=== PATIENT | female | born 1935 | race Caucasian/White ===

== ENCOUNTER → 2017-02-05 | Outpatient (CLI) | payer MEDICARE, MEDICAID ==
[~2017-02-05] MED LIST: ACETAMINOPHEN-H1 TA2 PO; ADVAIR 250/501 EA INH; ALLEGRA60 M2 PO; AMLODIPINE BESYL5 MG PO; CALCIUM + VITA1 EAC2 PO; CALCIUM 600 MG1 EACH PO; CALCIUM 600600 M2 PO; ESZOPICLONE3 MG PO; KEFLEX500 MG PO; LEVAQUIN750 M1 PO; LEVOTHYROXINE0.1 MG PO; LOPRESSOR25 MG PO; LOSARTAN POTASS1 TA5 PO; LOSARTAN POTASS1 TA6 PO; LOSARTAN POTASS50 M1 PO; MEDROL DOSEPAK4 MG PO; PREDNICOT20 MG PO; PREMARIN0.625 M1 PO; SPIRIVA -- 3018 MCG INH; SPIRIVA18 MCG PO; XARE20MG PO; ZYRTEC10 M3 PO
[2017-02-05 11:07] LABS: BASO # 0.1 10*3/uL (0.0-0.1); BASO % 0.7 % (0.0-1.0); EOS % 0.5 % (1.0-4.0); HEMATOCRIT 37.6 % (37.0-47.0); HEMOGLOBIN 12.2 g/dl (12.0-16.0); LYMPH # 2.9 10*3/uL (1.3-4.4); LYMPH % 38.6 % (27.0-41.0); MEAN CELL VOLUME 85.3 fl (81.0-99.0); MEAN CORPUSCULAR HGB 27.7 pg (27.0-31.0); MEAN CORPUSCULAR HGB CONC 32.4 g/dl (33.0-37.0); MEAN PLATELET VOLUME 10.3 fl (9.6-12.3); MONO % 13.1 % (3.0-9.0); NEUT # 3.5 10*3/uL (2.3-7.9); NEUT % 46.8 % (47.0-73.0); PLATELET COUNT AUTOMATED 283 10*3/uL (130-400); RED BLOOD COUNT 4.41 10*6/uL (4.10-5.10); RED CELL DISTRI WIDTH 13.1 % (0-14.5); WHITE BLOOD COUNT 7.4 10*3/uL (4.8-10.8)
[2017-02-05 11:29] LABS: ALBUMIN 3.4 gm/dl (3.1-4.5); ALKALINE PHOSPHATASE 96 U/L (45-117); BILIRUBIN, TOTAL 0.3 mg/dl (0.2-1.0); BUN 19 mg/dl (7-24); CARBON DIOXIDE 28 mmol/L (21-32); CHLORIDE 98 mmol/L (98-107); CHOLESTEROL 199 mg/dL (<200); EST GLOM FILT AFRICAN AMERICAN > 60 ml/min; GLUCOSE 78 mg/dL (65-99); HDL CHOLESTEROL 57 mg/dl (40-60); LDL CHOLESTEROL 103 mg/dL (9-159); POTASSIUM 3.6 mmol/L (3.5-5.1); SGOT/AST 28 IU/L (3-35); SGPT/ALT 31 U/L (12-78); SODIUM 136 mmol/L (136-145); TOTAL PROTEIN 7.6 gm/dL (6.4-8.2); TRIGLYCERIDES 196 mg/dl (<150); VLDL CHOLESTEROL 39 mg/dL (6-40)
== END | disposition home or self-care (01) ==
LOC: LAB 10:39
PROVIDERS: Nurse Practitioner
DX: I10 Essential (primary) hypertension (principal)

== ENCOUNTER 2017-03-10 09:01 | Inpatient (IN) | payer MEDICARE, MEDICAID ==
[~2017-03-10] VITALS: Ht 170.1 cm; Wt 77.7 kg
[2017-03-10] MEDS ORDERED: LEVOTHYROXINE0.1 MG PO (09:14)
[2017-03-10] MEDS ORDERED: VITAMIN D400 I1 PO (09:14)
[2017-03-10 09:15] VITALS: BP 174/81
[2017-03-10 09:26] LABS: BASO % 0.5 % (0.0-1.0); EOS # 0.1 10*3/uL (0.0-0.4); EOS % 0.9 % (1.0-4.0); HEMOGLOBIN 12.7 g/dl (12.0-16.0); LYMPH # 2.8 10*3/uL (1.3-4.4); MEAN CELL VOLUME 82.4 fl (81.0-99.0); MEAN CORPUSCULAR HGB 27.5 pg (27.0-31.0); MEAN CORPUSCULAR HGB CONC 33.4 g/dl (33.0-37.0); MEAN PLATELET VOLUME 10.7 fl (9.6-12.3); MONO % 13.2 % (3.0-9.0); NEUT # 3.8 10*3/uL (2.3-7.9); NEUT % 49.3 % (47.0-73.0); PLATELET COUNT AUTOMATED 279 10*3/uL (130-400); RED BLOOD COUNT 4.61 10*6/uL (4.10-5.10); RED CELL DISTRI WIDTH 12.8 % (0-14.5); WHITE BLOOD COUNT 7.7 10*3/uL (4.8-10.8)
[2017-03-10 09:34] LABS: INTERNATIONAL NORM RATIO 1.1 (2.0-3.5); PROTHROMBIN TIME 11.9 SECONDS (9.0-12.4)
[2017-03-10 09:38] LABS: C-REACTIVE PROTEIN 0.44 MG/DL (0-0.3)
[2017-03-10 11:08] LABS: ALBUMIN 3.8 gm/dl (3.1-4.5); ALKALINE PHOSPHATASE 87 U/L (45-117); BILIRUBIN, TOTAL 0.4 mg/dl (0.2-1.0); BUN 17 mg/dl (7-24); CARBON DIOXIDE 24 mmol/L (21-32); CHLORIDE 99 mmol/L (98-107); EST GLOM FILT AFRICAN AMERICAN > 60 ml/min; GLUCOSE 120 mg/dL (65-99); MAGNESIUM 1.6 mg/dL (1.5-2.1); POTASSIUM 3.9 mmol/L (3.5-5.1); SGOT/AST 32 IU/L (3-35); SGPT/ALT 34 U/L (12-78); SODIUM 134 mmol/L (136-145); TOTAL PROTEIN 7.7 gm/dL (6.4-8.2)
[2017-03-10 11:09] LABS: TROPONIN I < 0.015 ng/ml (<0.045)
[2017-03-10 11:45] VITALS: BP 148/92
[2017-03-10] MEDS ORDERED: METOPROLOL SUCC25 M2 PO (11:46)
[2017-03-10 12:00] VITALS: BP 148/92
[2017-03-10 16:00] VITALS: BP 157/72
[2017-03-10 20:00] VITALS: BP 158/78
[2017-03-11] VITALS: BP 120/82
[2017-03-11 07:29] LABS: BASO % 0.1 % (0.0-1.0); HEMATOCRIT 36.3 % (37.0-47.0); HEMOGLOBIN 12.4 g/dl (12.0-16.0); IG # 0.1 10*3/uL (0.0-0.1); LYMPH % 15.7 % (27.0-41.0); MEAN CELL VOLUME 82.3 fl (81.0-99.0); MEAN CORPUSCULAR HGB 28.1 pg (27.0-31.0); MEAN CORPUSCULAR HGB CONC 34.2 g/dl (33.0-37.0); MEAN PLATELET VOLUME 10.7 fl (9.6-12.3); MONO # 0.7 10*3/uL (0.1-1.0); MONO % 5.5 % (3.0-9.0); NEUT # 10.2 10*3/uL (2.3-7.9); NEUT % 78.3 % (47.0-73.0); PLATELET COUNT AUTOMATED 289 10*3/uL (130-400); RED BLOOD COUNT 4.41 10*6/uL (4.10-5.10); RED CELL DISTRI WIDTH 12.5 % (0-14.5)
[2017-03-11 07:40] LABS: BUN 18 mg/dl (7-24); CARBON DIOXIDE 25 mmol/L (21-32); CHLORIDE 91 mmol/L (98-107); EST GLOM FILT AFRICAN AMERICAN > 60 ml/min; GLUCOSE 134 mg/dL (65-99); MAGNESIUM 1.4 mg/dL (1.5-2.1); POTASSIUM 3.5 mmol/L (3.5-5.1); SODIUM 126 mmol/L (136-145)
[2017-03-11 07:45] LABS: FREE T4 1.59 ng/dl (0.76-1.46); PHOSPHOROUS 2.6 mg/dL (2.5-4.9)
[2017-03-11 07:51] LABS: THYROID STIM HORMONE (HS) 0.221 uIU/ml (0.358-4.75)
[2017-03-11 08:00] VITALS: BP 144/67
[2017-03-11 08:01] LABS: INTERNATIONAL NORM RATIO 1.2 (2.0-3.5); PROTHROMBIN TIME 12.7 SECONDS (9.0-12.4)
[2017-03-11 08:21] LABS: VITAMIN D, 25-HYDROXY 39.9 ng/mL (30-100)
[2017-03-11 08:31] LABS: FOLIC ACID > 24.00 ng/mL (>5.38)
[2017-03-11 12:00] VITALS: BP 142/55
[2017-03-11 16:00] VITALS: BP 141/51
[2017-03-11 18:30] LABS: BILIRUBIN NEGATIVE (NEGATIVE); BLOOD TRACE-INTACT (NEGATIVE); CLARITY CLEAR (CLEAR); COLOR YELLOW (YELLOW); GLUCOSE NEGATIVE (NEGATIVE); KETONE NEGATIVE (NEGATIVE); LEUKO ESTERASE NEGATIVE (NEGATIVE); NITRITE NEGATIVE (NEGATIVE); PH 5.5 (5.0-9.0); PROTEIN 1+ (NEGATIVE); SPECIFIC GRAVITY <= 1.005 (1.005-1.030); UROBILINOGEN 0.2 E.U./dl (0.2-1.0)
[2017-03-11 18:44] LABS: BACTERIA 3+; RBC 0-2 rbc/hpf (0-2)
[2017-03-11 20:00] VITALS: BP 126/45
[2017-03-12] VITALS: BP 133/53
[2017-03-12 06:12] LABS: BASO % 0.3 % (0.0-1.0); EOS # 0.1 10*3/uL (0.0-0.4); EOS % 0.4 % (1.0-4.0); HEMATOCRIT 39.2 % (37.0-47.0); HEMOGLOBIN 13.1 g/dl (12.0-16.0); LYMPH # 3.5 10*3/uL (1.3-4.4); MEAN CELL VOLUME 82.4 fl (81.0-99.0); MEAN CORPUSCULAR HGB 27.5 pg (27.0-31.0); MEAN CORPUSCULAR HGB CONC 33.4 g/dl (33.0-37.0); MEAN PLATELET VOLUME 10.9 fl (9.6-12.3); MONO # 1.3 10*3/uL (0.1-1.0); NEUT # 6.5 10*3/uL (2.3-7.9); PLATELET COUNT AUTOMATED 288 10*3/uL (130-400); RED BLOOD COUNT 4.76 10*6/uL (4.10-5.10); RED CELL DISTRI WIDTH 12.9 % (0-14.5); WHITE BLOOD COUNT 11.4 10*3/uL (4.8-10.8)
[2017-03-12 06:39] LABS: POTASSIUM 3.5 mmol/L (3.5-5.1)
[2017-03-12 08:00] VITALS: BP 120/70
[2017-03-12] MEDS ORDERED: LEVAQUIN750 M1 PO (09:57)
[2017-03-12] MEDS ORDERED: MUCINEX ER600 MG PO (10:10)
[2017-03-12] MEDS ORDERED: AMLODIPINE BESYL5 MG PO (10:17)
[2017-03-13 14:08] LABS: ORGANISM ID Not indicated. (.); SPECIMEN SOURCE Urine (.); STREPTOCOCCUS PNEUMONIAE AG Negative (Negative)
== END 2017-03-12 12:42 | disposition home or self-care (01) | DRG 190 ==
LOC: ED 09:01 → EDHOLD 11:20 → 4E 11:30
PROVIDERS: Emergency Medicine; Internal Medicine
DX: J44.0 Chronic obstructive pulmonary disease with (acute) lower respiratory infection (principal); J15.6 Pneumonia due to other Gram-negative bacteria; E87.1 Hypo-osmolality and hyponatremia; I48.0 Paroxysmal atrial fibrillation; J44.1 Chronic obstructive pulmonary disease with (acute) exacerbation; R07.81 Pleurodynia; Z88.6 Allergy status to analgesic agent; I10 Essential (primary) hypertension; Z98.42 Cataract extraction status, left eye; Z98.41 Cataract extraction status, right eye; Z87.891 Personal history of nicotine dependence; R73.9 Hyperglycemia, unspecified; E03.9 Hypothyroidism, unspecified; Z66 Do not resuscitate; Z90.710 Acquired absence of both cervix and uterus

== ENCOUNTER 2017-06-09 19:14 | Emergency (ER) | payer MEDICARE, MEDICAID ==
[~2017-06-09] VITALS: Ht 170.1 cm; Wt 74.8 kg
[~2017-06-09 19:14] MED LIST changes: +METOPROLOL SUCC25 M2 PO; +MUCINEX ER600 MG PO; +VITAMIN D400 I1 PO
== END 2017-06-09 21:12 | disposition home or self-care (01) ==
LOC: ED 19:14
DX: S00.03XA Contusion of scalp, initial encounter (principal); I10 Essential (primary) hypertension; I48.0 Paroxysmal atrial fibrillation; J44.9 Chronic obstructive pulmonary disease, unspecified; E03.9 Hypothyroidism, unspecified; Z88.6 Allergy status to analgesic agent; Z79.899 Other long term (current) drug therapy; W10.9XXA Fall (on) (from) unspecified stairs and steps, initial encounter; Y93.89 Activity, other specified; Y92.89 Other specified places as the place of occurrence of the external cause; Y99.8 Other external cause status

== ENCOUNTER 2017-08-05 11:58 | Emergency (ER) | payer MEDICARE, MEDICAID ==
[~2017-08-05] VITALS: Ht 170.1 cm; Wt 70.8 kg
[2017-08-05 12:47] LABS: BASO # 0.1 10*3/uL (0.0-0.1); BASO % 0.7 % (0.0-1.0); EOS # 0.1 10*3/uL (0.0-0.4); EOS % 0.9 % (1.0-4.0); HEMATOCRIT 42.4 % (37.0-47.0); LYMPH # 3.3 10*3/uL (1.3-4.4); LYMPH % 36.5 % (27.0-41.0); MEAN CELL VOLUME 82.5 fl (81.0-99.0); MEAN CORPUSCULAR HGB 27.2 pg (27.0-31.0); MEAN PLATELET VOLUME 10.5 fl (9.6-12.3); MONO # 1.1 10*3/uL (0.1-1.0); MONO % 12.6 % (3.0-9.0); NEUT # 4.4 10*3/uL (2.3-7.9); NEUT % 49.1 % (47.0-73.0); PLATELET COUNT AUTOMATED 275 10*3/uL (130-400); RED BLOOD COUNT 5.14 10*6/uL (4.10-5.10); RED CELL DISTRI WIDTH 13.6 % (0-14.5); WHITE BLOOD COUNT 8.9 10*3/uL (4.8-10.8)
[2017-08-05 12:54] LABS: BILIRUBIN NEGATIVE (NEGATIVE); BLOOD TRACE-INTACT (NEGATIVE); CLARITY SL CLOUDY (CLEAR); COLOR YELLOW (YELLOW); GLUCOSE NEGATIVE (NEGATIVE); KETONE NEGATIVE (NEGATIVE); LEUKO ESTERASE 3+ (NEGATIVE); NITRITE NEGATIVE (NEGATIVE); SPECIFIC GRAVITY 1.015 (1.005-1.030); UROBILINOGEN 0.2 E.U./dl (0.2-1.0)
[2017-08-05 12:59] LABS: ACT PARTIAL THROMBO TIME 36.9 SECONDS (20.8-31.5); INTERNATIONAL NORM RATIO 1.2 (2.0-3.5)
[2017-08-05 13:02] LABS: BACTERIA 2+; EPITHELIAL CELLS 15-20
[2017-08-05 13:03] LABS: WBC 21-30 wbc/hpf (0-5)
[2017-08-05 13:05] LABS: ALBUMIN 3.7 gm/dl (3.1-4.5); ALKALINE PHOSPHATASE 108 U/L (45-117); BUN 20 mg/dl (7-24); CHLORIDE 96 mmol/L (98-107); CREATININE 1.08 mg/dL (0.55-1.02); POTASSIUM 3.8 mmol/L (3.5-5.1); SGOT/AST 26 IU/L (3-35); SGPT/ALT 25 U/L (12-78); SODIUM 133 mmol/L (136-145); TOTAL PROTEIN 8.3 gm/dL (6.4-8.2)
[2017-08-05 13:09] LABS: TROPONIN I < 0.015 ng/ml (<0.045)
[2017-08-05] MEDS ORDERED: Bactrim DS PO (15:21)
[2017-08-05] MEDS ORDERED: PYRIDIUM200 M1 PO (15:21)
== END 2017-08-05 15:32 | disposition home or self-care (01) ==
LOC: ED 11:58
PROVIDERS: Nurse Practitioner Family
DX: N30.01 Acute cystitis with hematuria (principal); R03.0 Elevated blood-pressure reading, without diagnosis of hypertension; J44.9 Chronic obstructive pulmonary disease, unspecified; Z88.6 Allergy status to analgesic agent; Z79.899 Other long term (current) drug therapy; Z87.891 Personal history of nicotine dependence

== ENCOUNTER 2017-10-07 08:55 | Inpatient (IN) | payer MEDICARE, MEDICAID ==
[~2017-10-07] VITALS: Ht 170.1 cm; Wt 77.2 kg
[2017-10-07 08:55] VITALS: BP 152/90
[~2017-10-07 08:55] MED LIST changes: +Bactrim DS PO; -LOSARTAN POTASS1 TA6 PO; +LOSARTAN-HCTZ1 EAC1 PO; +PYRIDIUM200 M1 PO
[2017-10-07 09:15] LABS: BASO # 0.1 10*3/uL (0.0-0.1); BASO % 0.7 % (0.0-1.0); EOS # 0.1 10*3/uL (0.0-0.4); HEMATOCRIT 41.8 % (37.0-47.0); HEMOGLOBIN 14.1 g/dl (12.0-16.0); LYMPH # 3.1 10*3/uL (1.3-4.4); LYMPH % 36.1 % (27.0-41.0); MEAN CELL VOLUME 80.9 fl (81.0-99.0); MEAN CORPUSCULAR HGB 27.3 pg (27.0-31.0); MEAN CORPUSCULAR HGB CONC 33.7 g/dl (33.0-37.0); MEAN PLATELET VOLUME 10.2 fl (9.6-12.3); MONO % 11.7 % (3.0-9.0); NEUT # 4.4 10*3/uL (2.3-7.9); NEUT % 50.3 % (47.0-73.0); PLATELET COUNT AUTOMATED 297 10*3/uL (130-400); RED BLOOD COUNT 5.17 10*6/uL (4.10-5.10); RED CELL DISTRI WIDTH 14.3 % (0-14.5); WHITE BLOOD COUNT 8.7 10*3/uL (4.8-10.8)
[2017-10-07 09:24] LABS: ACT PARTIAL THROMBO TIME 36.7 SECONDS (20.8-31.5); INTERNATIONAL NORM RATIO 1.2 (2.0-3.5)
[2017-10-07] MEDS ORDERED: ADVAIR 250/501 EA INH (09:25)
[2017-10-07 09:38] LABS: ALBUMIN 3.6 gm/dl (3.1-4.5); ALKALINE PHOSPHATASE 106 U/L (45-117); BUN 17 mg/dl (7-24); CHLORIDE 96 mmol/L (98-107); CREATININE 1.15 mg/dL (0.55-1.02); POTASSIUM 3.9 mmol/L (3.5-5.1); SGOT/AST 20 IU/L (3-35); SGPT/ALT 21 U/L (12-78); SODIUM 132 mmol/L (136-145)
[2017-10-07 09:40] LABS: TROPONIN I < 0.015 ng/ml (<0.045)
[2017-10-07 09:52] VITALS: BP 132/83
[2017-10-07 10:10] VITALS: BP 132/80
[2017-10-07 12:00] VITALS: BP 147/87
[2017-10-07 16:00] VITALS: BP 126/72
[2017-10-07 20:00] VITALS: BP 134/68
[2017-10-08] VITALS: BP 129/80
[2017-10-08 06:54] LABS: BASO # 0.1 10*3/uL (0.0-0.1); BASO % 0.7 % (0.0-1.0); EOS # 0.1 10*3/uL (0.0-0.4); EOS % 0.8 % (1.0-4.0); HEMATOCRIT 40.3 % (37.0-47.0); HEMOGLOBIN 13.5 g/dl (12.0-16.0); LYMPH # 2.7 10*3/uL (1.3-4.4); LYMPH % 38.6 % (27.0-41.0); MEAN CELL VOLUME 81.9 fl (81.0-99.0); MEAN CORPUSCULAR HGB 27.4 pg (27.0-31.0); MEAN CORPUSCULAR HGB CONC 33.5 g/dl (33.0-37.0); MEAN PLATELET VOLUME 10.7 fl (9.6-12.3); MONO # 0.9 10*3/uL (0.1-1.0); NEUT # 3.4 10*3/uL (2.3-7.9); NEUT % 47.6 % (47.0-73.0); PLATELET COUNT AUTOMATED 290 10*3/uL (130-400); RED BLOOD COUNT 4.92 10*6/uL (4.10-5.10); RED CELL DISTRI WIDTH 14.5 % (0-14.5); WHITE BLOOD COUNT 7.1 10*3/uL (4.8-10.8)
[2017-10-08 07:28] LABS: ALBUMIN 3.4 gm/dl (3.1-4.5); TOTAL PROTEIN 7.4 gm/dL (6.4-8.2)
[2017-10-08 07:35] LABS: CREATININE 1.08 mg/dL (0.55-1.02); PHOSPHOROUS 3.9 mg/dL (2.5-4.9); THYROID STIM HORMONE (HS) 0.89 uIU/ml (0.358-4.75)
[2017-10-08 08:00] VITALS: BP 138/88
[2017-10-08] MEDS ORDERED: MUCINEX ER600 MG PO (11:14)
== END 2017-10-08 12:18 | disposition home or self-care (01) | DRG 206 ==
LOC: ED 08:55 → EDHOLD 09:20 → 5E 09:47
PROVIDERS: Emergency Medicine; Internal Medicine Nephrology
DX: M94.0 Chondrocostal junction syndrome [Tietze] (principal); E44.0 Moderate protein-calorie malnutrition; E87.8 Other disorders of electrolyte and fluid balance, not elsewhere classified; E87.1 Hypo-osmolality and hyponatremia; I48.0 Paroxysmal atrial fibrillation; E03.9 Hypothyroidism, unspecified; D72.821 Monocytosis (symptomatic); E55.9 Vitamin D deficiency, unspecified; N18.3 Chronic kidney disease, stage 3 (moderate); R73.9 Hyperglycemia, unspecified; E78.00 Pure hypercholesterolemia, unspecified; E66.3 Overweight; I12.9 Hypertensive chronic kidney disease with stage 1 through stage 4 chronic kidney disease, or unspecified chronic kidney disease; E74.39 Other disorders of intestinal carbohydrate absorption; J44.9 Chronic obstructive pulmonary disease, unspecified; Z98.42 Cataract extraction status, left eye; Z98.41 Cataract extraction status, right eye; Z90.710 Acquired absence of both cervix and uterus; Z87.891 Personal history of nicotine dependence; Z81.1 Family history of alcohol abuse and dependence; Z84.89 Family history of other specified conditions; Z88.6 Allergy status to analgesic agent; Z79.899 Other long term (current) drug therapy; Z91.81 History of falling; Z87.01 Personal history of pneumonia (recurrent); Z68.26 Body mass index [BMI] 26.0-26.9, adult

== ENCOUNTER 2017-10-22 15:43 | Emergency (ER) | payer MEDICARE, MEDICAID ==
[~2017-10-22] VITALS: Ht 170.1 cm; Wt 76.2 kg
== END 2017-10-22 16:15 | disposition home or self-care (01) ==
LOC: ED 15:43
DX: S61.209A Unspecified open wound of unspecified finger without damage to nail, initial encounter (principal); I12.9 Hypertensive chronic kidney disease with stage 1 through stage 4 chronic kidney disease, or unspecified chronic kidney disease; N18.3 Chronic kidney disease, stage 3 (moderate); J44.9 Chronic obstructive pulmonary disease, unspecified; R73.9 Hyperglycemia, unspecified; Z90.710 Acquired absence of both cervix and uterus; Z88.6 Allergy status to analgesic agent; Z79.899 Other long term (current) drug therapy; W45.8XXA Other foreign body or object entering through skin, initial encounter; Y93.89 Activity, other specified; Y92.89 Other specified places as the place of occurrence of the external cause; Y99.8 Other external cause status

== ENCOUNTER → 2017-11-24 | Outpatient (CLI) | payer MEDICARE, MEDICAID | END | disposition home or self-care (01) | LOC: US 11-22 14:00 | DX: R22.1 Localized swelling, mass and lump, neck (principal) ==

== ENCOUNTER 2018-02-04 12:06 | Inpatient (IN) | payer MEDICARE, MEDICAID ==
[~2018-02-04] VITALS: Ht 170.2 cm; Wt 63.5 kg
--- NOTE | ~2018-02-04 | PROC NOTE ---
[place], [place] PROCEDURE NOTE NAME: ETHAN MARIN UNIT #: [id number] ROOM: 506 DOCTOR: AYANA HOOPER MD,TED BIRTHDATE: [birth year] DOS: 02/06/2018 PREOPERATIVE DIAGNOSIS: Persistent severe cough and wheezing. POSTOPERATIVE DIAGNOSIS: Removal of moderate amount of mucus back to the major airways bilaterally without complication. PROCEDURE DESCRIPTION: Informed consent obtained for the patient. The patient brought to the OR and placed in supine position. Conscious sedation listed was sent to the department. After achieving proper sedation, airway introduced into the mouth. Bronchoscope advanced to airway into laryngeal area. Epiglottis and vocal cords were seen. Bronchoscope was advanced to vocal and tracheal lumen. Tracheal lumen was noted with moderate amount of thick mucus secretion, which was suctioned out. Laura was noted sharp. Right upper, right middle, right lower, left upper, lingula, lower lobe bronchi all noted. Moderate impaction of the mucus noted in the airways with bilateral subsegments. All secretions were cleared with normal saline wash successful without difficulty. Postoperative findings will be discussed with the patient while the patient recovers from the effects of acute sedation. Based on the current assessment, the patient would not require any changes in the medical management. TED PIÑA MD CM:PROCNOTE:PROCEDURE NOTE [id number] TED HOOPER MD
--- NOTE | ~2018-02-04 | EKG ---
[place], [place] ELECTROCARDIOGRAM REPORT NAME: ETHAN MARIN UNIT #: [id number] ROOM: 506 DOCTOR: AYANA HOOPER MD,TED BIRTHDATE: [birth year] DOS: 02/04/2018 ELECTROCARDIOGRAM TIME: 01:02 p.m. FINDINGS: Atrial fibrillation noted with controlled rate for the patient at a heart rate of 73 beats per minute. Poor R-wave progression noted in the chest leads. Consideration of myocardial infarction. TED PIÑA MD CM:EKGRPT:ELECTROCARDIOGRAM REPORT [id number] [id number] TED HOOPER MD
--- NOTE | ~2018-02-04 | PR ---
[place], [place] PROGRESS NOTE [id number] UNIT #: [id number] ROOM: 506 DOCTOR: AYANA HOOPER MD,TED BIRTHDATE: [birth year] DOS: 02/06/2018 SUBJECTIVE: She has been noted comfortable at this time, resting, was noted severe cough which has been nonproductive. Shortness of breath, wheezing was reported. Denies symptoms of nausea, vomiting. Denies symptoms of headache. Denies any pain of the lower extremity. Denies symptoms of hematuria. Remaining systems were reviewed, they were noted all negative. The patient is currently noted n.p.o. past midnight for bronchoscopy that was planned to be done today for assessment of severe coughing with wheezing. OBJECTIVE: VITAL SIGNS: For the patient which are recorded showed normal temperature, respiratory rate 22, heart rate 98, and blood pressure 129/83. Pulse oxygen saturation noted on room air 95% saturation. HEAD, EYES, EARS, NOSE, AND THROAT: Head was atraumatic. Eyes nonicterus. NECK: Supple. CARDIOVASCULAR: S1, S2 audible. No added sounds. LUNGS: The patient was noted with decreased breath sounds in the lungs bilaterally with expiratory wheezing. ABDOMEN: Soft, nontender, bowel sounds present. EXTREMITIES: Without any acute edema. SKIN: No lesions or rashes. MUSCULOSKELETAL SYMPTOMS: No acute deformities. CENTRAL NERVOUS SYSTEM: Remains intact. LABORATORY DATA: Echocardiogram that was completed yesterday 02/05/2018. The patient reviewed by Dr. Flores, reported with findings of normal left ventricular function. Left ventricle wall thickening was noted normal as well. Grade 3 diastolic dysfunction was reported. Right ventricle was noted, mild hypokinesia and dilatation. Mild mitral valve regurgitation was noted. Pulmonary artery pressure was noted moderately elevated at 38. IMPRESSION: The patient was currently noted with ongoing acute exacerbation of chronic obstructive pulmonary disease, persistent coughing and wheezing, other symptoms, acute shortness of breath, multifactorial related to exacerbation of chronic obstructive pulmonary disease, possibly related to pulmonary hypertension. The patient exact etiology at this time remains unclear with moderate pulmonary hypertension, also noted diastolic dysfunction as well. PLAN OF MANAGEMENT: Proceed the bronchoscopy as planned. Pulmonary hypertension. ASSESSMENT: The patient needs to be done as outpatient for further assessment of pulmonary status as an outpatient. Continue in the meantime other maximal medical management therapy. Supportive care therapy, plan of management, changes in the medical management based on progression of illness and after bronchoscopy. [place], [place] PROGRESS NOTE NAME: ETHAN MARIN UNIT #: [id number] ROOM: [facility] DOCTOR: TED GORDON MD BIRTHDATE: [birth year] TED PIÑA MD CM:PNTRANS 0836 1155 TED HOOPER MD 02/06/18 1154 interface
--- NOTE | ~2018-02-04 | PR ---
[place], [place] PROGRESS NOTE NAME: ETHAN MARIN UNIT #: [id number] ROOM: 506 DOCTOR: TED GORDON MD BIRTHDATE: [birth year] DOS: 02/07/2018 SUBJECTIVE: She was noted comfortable at this time, resting on the bed without any acute new symptoms. Denies symptoms of chest pain, coughing, or sputum expectoration. The bronchoscopy resulted in significant improvement and resolution of the acute respiratory symptoms. OBJECTIVE: VITAL SIGNS: This morning, normal temperature, respiratory rate of 20, heart rate 80, blood pressure 134/74. Pulse oxygen saturation on room air 95% saturation. HEENT: No acute change. NECK: Supple. CARDIOVASCULAR: S1, S2 audible. LUNGS: Without any wheezing or crackles. ABDOMEN: Soft, nontender. EXTREMITIES: Without any acute edema. LABORATORY DATA: Culture of the bronchial washing noted normal zaynab ____ gram stain, few epithelial cells, white blood cells without any organisms. IMPRESSION: 1. Significant improvement. The patient was noted with acute respiratory symptoms related to the acute exacerbation of chronic obstructive pulmonary disease. 2. Status post bronchoscopy for the patient was also noted. 3. Pulmonary hypertension, patient's etiology undetermined. 4. History of congestive heart failure, diastolic dysfunction. 5. Resolving acute exacerbation of chronic obstructive pulmonary disease. PLAN OF MANAGEMENT: The patient could be considered for home discharge on oral medications and also to continue other previous therapy, plan of care, coverage. Usual care, other supportive plan of management and treatment. Supportive care. [place], [place] PROGRESS NOTE NAME: ETHAN MARIN UNIT #: [id number] ROOM: 506 DOCTOR: TED GORDON MD BIRTHDATE: [birth year] TED PIÑA MD CM:PNTRANS [id number] TED HOOPER MD 02/07/18 1401 interface
--- NOTE | ~2018-02-04 | CON ---
[place], [place] REPORT [facility] CON[facility]ULTATION [id number] UNIT #: [id number] ROOM: 506 DOCTOR: TED GORDON MD BIRTHDATE: [birth year] DOS: 02/05/2018 CONSULTATION REQUESTED BY: Hospitalist services. REASON FOR CONSULTATION: To assess the patient for symptoms of coughing and wheezing. HISTORY OF PRESENT ILLNESS: This is an 82-year-old white female with known history of COPD. The patient reported symptoms of ongoing respiratory symptoms over a month. She does have a cough, which has been described to be qliqdrgg-gl-fqacqg, nonproductive. The patient denies symptoms of chest pain, shortness breath was reported by the patient. She has reported symptoms of chest tightness. The patient is wheezing as well. The patient stated with current use of respiratory medications, symptoms had not been resolving and been present continuously. The patient denies any symptoms of hemoptysis or chest pain. She is admitted to the hospital on 02/04/2018 for the current ongoing medical illness. The patient has been receiving steroids, bronchodilator treatment for the management of acute exacerbation of COPD. REVIEW OF SYSTEMS: CONSTITUTIONAL: Fatigue and tiredness reported. Denies symptoms of fever or chills. EYES: Denies any burning, redness, or tenderness. EARS, NOSE, THROAT SYMPTOMS: Denies sore throat, hoarseness, otalgia, postnasal drainage or epistaxis. CARDIOVASCULAR: Denies anginal pain, edema, pain of the lower extremities. GASTROINTESTINAL: The patient denies symptoms of dysphagia, nausea, vomiting, diarrhea, abdominal pain, hematemesis, melena, or hematochezia. GENITOURINARY: No dysuria, suprapubic pain, hematuria. MUSCULOSKELETAL: No acute joint pain, redness, or tenderness. SKIN: No abnormal lesions or rashes. CENTRAL NERVOUS SYSTEM: Without any focal neurologic deficit, tingling sensation of the extremities. Remaining systems were reviewed. They were noted all negative. PAST MEDICAL HISTORY: The patient noted with history of: 1. Okavocpj-hm-uxtbfp chronic obstructive pulmonary disease. 2. Essential hypertension. 3. Hypothyroidism. 4. Atrial fibrillation. PAST SURGICAL HISTORY: 1. Complete hysterectomy. 2. Bladder neck suspension. 3. Laparoscopic cholecystectomy. SOCIAL HISTORY: The patient is , has 5 children, lives at home. Denies alcohol use or illicit drug use. Tobacco is noted from age of [age] years old, 1.5 pack of cigarettes per day until 2004. [place], [place] REPORT OF CONSULTATION NAME: ETHAN MARIN UNIT #: [id number] ROOM: [facility] DOCTOR: TED GORDON MD BIRTHDATE: [birth year] FAMILY HISTORY: The patient's father at the age of 60 due to complication of alcohol dependence. The mother at age 57 due to complication of pulmonary embolism. MEDICATIONS: The home medications noted as use of Zyrtec, Advair, levothyroxine, losartan with hydrochlorothiazide, metoprolol succinate, Xarelto, trazodone, and vitamin D. DRUG ALLERGIES: NOTED ALLERGY TO THE ASPIRIN. PHYSICAL EXAMINATION: GENERAL: This is an 82-year-old white female currently noted resting comfortably in the bed without any distress, nonproductive cough is noted. Height of 5 feet 7 inches, weight of 140 pounds, BMI 26.5. VITAL SIGNS: Normal temperature, respirations 18-20, heart rate of 58-117, blood pressure 156/90-133/81. Pulse oxygen saturation of the patient room air 93-98% saturation. HEENT: Examination shows head was atraumatic. Eyes nonicterus. NECK: Supple. CARDIOVASCULAR: S1, S2 audible. LUNGS: The patient shows decreased breath sounds with diffuse expiratory wheezing, no crackles. ABDOMEN: Soft and nontender. Bowel sounds present. EXTREMITIES: No acute edema. SKIN: No lesions or rashes. MUSCULOSKELETAL: No acute deformities. Cranial nerves 2-12 intact. No focal deficit. LABORATORY DATA: Lactic acid normal yesterday. PT/INR noted 1.4, PTT 45 yesterday as well. CMP of the patient of 610, BUN 17, creatinine 1.17, sodium 130. The CBC this morning was normal. PT/INR 1.3. CMP this morning, BUN 17, creatinine 1.26, and sodium 133. Magnesium noted low as 1.4. The chest x-ray of the patient, which was done one-view during hospitalization showed changes of COPD without any acute abnormalities. IMPRESSION: 1. The patient will be currently admitted to the hospital noted with progressive increased respiratory symptom about a month with acute exacerbation of chronic obstructive pulmonary disease, coughing with suspected mucous impaction because of chronic symptoms over a month. 2. Past history of tobacco use. 3. Elevation of creatinine noted on this admission for the patient in the last 24 hours may be related to intravascular volume depletion very likely cause. PLAN OF MANAGEMENT: The patient has been currently getting the bronchodilators and oxygen supplementation, Solu-Medrol 40 mg b.i.d. that will be continued. Continue current antibiotics, Rocephin, and Zithromax for community-acquired bronchitis. The fibrobronchoscopy has to be done tomorrow morning because of severe symptom to extract mucus impaction major airways. Other previous [place], [place] REPORT OF CONSULTATION NAME: ETHAN MARIN UNIT #: [id number] ROOM: [facility] DOCTOR: TED GORDON MD BIRTHDATE: [birth year] treatment plan and management to be continued for the patient as previously ordered. Usual care. Other supportive plan of management and care. TED PIÑA MD CM:CONSTR:REPORT OF CONSULTATION 1146 02/05/18 1658 interface
--- NOTE | ~2018-02-04 | EKG ---
[place], [place] ELECTROCARDIOGRAM REPORT NAME: ETHAN MARIN UNIT #: [id number] ROOM: 506 DOCTOR: AYANA HOOPER MD,TED BIRTHDATE: [birth year] DOS: 02/05/2018 ELECTROCARDIOGRAM TIME: 11:26 a.m. FINDINGS: Atrial fibrillation noted with mild rapid ventricular response, has heart rate of 103 beats per minute. Left axis deviation was noted. TED PIÑA MD CM:EKGRPT:ELECTROCARDIOGRAM REPORT 1242 1306 TED HOOPER MD
[2018-02-04 12:27] VITALS: BP 188/77
[2018-02-04] MEDS ORDERED: TRAZODONE150 MG PO (12:37)
[2018-02-04 13:02] LABS: BASO # 0.1 10*3/uL (0.0-0.1); BASO % 0.7 % (0.0-1.0); EOS # 0.1 10*3/uL (0.0-0.4); EOS % 0.8 % (1.0-4.0); HEMATOCRIT 41.4 % (37.0-47.0); HEMOGLOBIN 13.6 g/dl (12.0-16.0); LYMPH # 2.3 10*3/uL (1.3-4.4); LYMPH % 26.9 % (27.0-41.0); MEAN CELL VOLUME 82.1 fl (81.0-99.0); MEAN CORPUSCULAR HGB CONC 32.9 g/dl (33.0-37.0); MEAN PLATELET VOLUME 10.7 fl (9.6-12.3); NEUT # 5.1 10*3/uL (2.3-7.9); NEUT % 59.5 % (47.0-73.0); PLATELET COUNT AUTOMATED 268 10*3/uL (130-400); RED BLOOD COUNT 5.04 10*6/uL (4.10-5.10); RED CELL DISTRI WIDTH 14.4 % (0-14.5); WHITE BLOOD COUNT 8.6 10*3/uL (4.8-10.8)
[2018-02-04 13:11] LABS: ACT PARTIAL THROMBO TIME 45.8 SECONDS (20.8-31.5); INTERNATIONAL NORM RATIO 1.4 (2.0-3.5)
[2018-02-04 13:31] LABS: ALBUMIN 3.4 gm/dl (3.1-4.5); ALKALINE PHOSPHATASE 97 U/L (45-117); BUN 17 mg/dl (7-24); CHLORIDE 96 mmol/L (98-107); CREATININE 1.17 mg/dL (0.55-1.02); LIPASE 169 U/L (73-393); POTASSIUM 4.7 mmol/L (3.5-5.1); SGOT/AST 39 IU/L (3-35); SGPT/ALT 21 U/L (12-78); SODIUM 130 mmol/L (136-145); TOTAL PROTEIN 7.9 gm/dL (6.4-8.2); TROPONIN I < 0.015 ng/ml (<0.045)
[2018-02-04 14:03] LABS: BILIRUBIN NEGATIVE (NEGATIVE); BLOOD NEGATIVE (NEGATIVE); CLARITY CLEAR (CLEAR); COLOR YELLOW (YELLOW); GLUCOSE NEGATIVE (NEGATIVE); KETONE NEGATIVE (NEGATIVE); LEUKO ESTERASE 1+ (NEGATIVE); NITRITE NEGATIVE (NEGATIVE); PH 6.5 (5.0-9.0); SPECIFIC GRAVITY <= 1.005 (1.005-1.030); UROBILINOGEN 0.2 E.U./dl (0.2-1.0)
[2018-02-04 14:23] LABS: RBC 0-2 rbc/hpf (0-2)
[2018-02-04 14:35] VITALS: BP 141/62
[2018-02-04 16:43] VITALS: BP 171/86
[2018-02-04 20:00] VITALS: BP 156/90
[2018-02-05] VITALS (7 sets, daily range): BP systolic 113–145; BP diastolic 44–89
[2018-02-05 07:20] LABS: BASO % 0.2 % (0.0-1.0); HEMATOCRIT 41.5 % (37.0-47.0); HEMOGLOBIN 13.7 g/dl (12.0-16.0); LYMPH # 1.1 10*3/uL (1.3-4.4); LYMPH % 18.6 % (27.0-41.0); MEAN CORPUSCULAR HGB 27.4 pg (27.0-31.0); MEAN PLATELET VOLUME 10.5 fl (9.6-12.3); MONO # 0.1 10*3/uL (0.1-1.0); MONO % 1.8 % (3.0-9.0); NEUT # 4.7 10*3/uL (2.3-7.9); NEUT % 79.1 % (47.0-73.0); PLATELET COUNT AUTOMATED 255 10*3/uL (130-400); RED CELL DISTRI WIDTH 14.5 % (0-14.5)
[2018-02-05 07:28] LABS: INTERNATIONAL NORM RATIO 1.3 (2.0-3.5)
[2018-02-05 07:41] LABS: ALBUMIN 3.5 gm/dl (3.1-4.5); CREATININE 1.26 mg/dL (0.55-1.02); PHOSPHOROUS 3.1 mg/dL (2.5-4.9); POTASSIUM 3.9 mmol/L (3.5-5.1); TOTAL PROTEIN 8.1 gm/dL (6.4-8.2)
[2018-02-05 07:49] LABS: THYROID STIM HORMONE (HS) 0.693 uIU/ml (0.358-4.75)
[2018-02-06] VITALS (9 sets, daily range): BP systolic 115–165; BP diastolic 62–98
[2018-02-06 10:47] LABS: HEMATOCRIT 39.4 % (37.0-47.0); HEMOGLOBIN 12.6 g/dl (12.0-16.0); MEAN CELL VOLUME 83.8 fl (81.0-99.0); MEAN CORPUSCULAR HGB 26.8 pg (27.0-31.0); MEAN PLATELET VOLUME 10.5 fl (9.6-12.3); PLATELET COUNT AUTOMATED 270 10*3/uL (130-400); RED CELL DISTRI WIDTH 14.8 % (0-14.5); WHITE BLOOD COUNT 14.6 10*3/uL (4.8-10.8)
[2018-02-06 11:08] LABS: TOTAL CELLS COUNTED 100 #CELLS
[2018-02-06 11:09] LABS: PLATELET SUFFICIENCY NORMAL (NORMAL)
[2018-02-06 11:15] LABS: ALBUMIN 3.7 gm/dl (3.1-4.5); CREATININE 1.28 mg/dL (0.55-1.02); PHOSPHOROUS 3.1 mg/dL (2.5-4.9); POTASSIUM 3.6 mmol/L (3.5-5.1)
[2018-02-06 11:18] LABS: TOTAL PROTEIN 7.7 gm/dL (6.4-8.2)
[2018-02-07] VITALS: BP 168/83
[2018-02-07 08:00] VITALS: BP 138/74
[2018-02-07 12:00] VITALS: BP 152/85
[2018-02-07] MEDS ORDERED: PREDNISONE10 MG PO (12:06)
[2018-02-07] MEDS ORDERED: DOXYCYCLINE100 M3 PO (12:06)
[2018-02-07 15:05] LABS: ACID FAST SPEC PROCESSING Concentration (.)
[2018-03-16 11:04] LABS: ORGANISM ID, MOLD Final report (.); RESULT 1 Final Identification (.)
== END 2018-02-07 12:56 | disposition home or self-care (01) | DRG 871 ==
LOC: ED 12:06 → EDHOLD 13:56 → 5E 13:56
PROVIDERS: Internal Medicine; Internal Medicine Critical Care Medicine; Physician Assistant; Student in an Organized Health Care Education/Training Program
PROC: 0BCB8ZZ Extirpation of Matter from Left Lower Lobe Bronchus, Via Natural or Artificial Opening Endoscopic (ICD-10-PCS; principal; 2018-02-06)
PROC: 0BC68ZZ Extirpation of Matter from Right Lower Lobe Bronchus, Via Natural or Artificial Opening Endoscopic (ICD-10-PCS; principal; 2018-02-06)
PROC: 0BC98ZZ Extirpation of Matter from Lingula Bronchus, Via Natural or Artificial Opening Endoscopic (ICD-10-PCS; principal; 2018-02-06)
PROC: 0BC78ZZ Extirpation of Matter from Left Main Bronchus, Via Natural or Artificial Opening Endoscopic (ICD-10-PCS; principal; 2018-02-06)
PROC: 0BC48ZZ Extirpation of Matter from Right Upper Lobe Bronchus, Via Natural or Artificial Opening Endoscopic (ICD-10-PCS; principal; 2018-02-06)
PROC: 0BC38ZZ Extirpation of Matter from Right Main Bronchus, Via Natural or Artificial Opening Endoscopic (ICD-10-PCS; principal; 2018-02-06)
PROC: 0BC18ZZ Extirpation of Matter from Trachea, Via Natural or Artificial Opening Endoscopic (ICD-10-PCS; principal; 2018-02-06)
PROC: 0BC58ZZ Extirpation of Matter from Right Middle Lobe Bronchus, Via Natural or Artificial Opening Endoscopic (ICD-10-PCS; principal; 2018-02-06)
PROC: 0BC88ZZ Extirpation of Matter from Left Upper Lobe Bronchus, Via Natural or Artificial Opening Endoscopic (ICD-10-PCS; principal; 2018-02-06)
DX: A41.9 Sepsis, unspecified organism (principal); J18.9 Pneumonia, unspecified organism; T17.590A Other foreign object in bronchus causing asphyxiation, initial encounter; I27.20 Pulmonary hypertension, unspecified; I13.0 Hypertensive heart and chronic kidney disease with heart failure and stage 1 through stage 4 chronic kidney disease, or unspecified chronic kidney disease; I50.32 Chronic diastolic (congestive) heart failure; E87.1 Hypo-osmolality and hyponatremia; E83.42 Hypomagnesemia; E87.8 Other disorders of electrolyte and fluid balance, not elsewhere classified; J44.0 Chronic obstructive pulmonary disease with (acute) lower respiratory infection; J44.1 Chronic obstructive pulmonary disease with (acute) exacerbation; I48.0 Paroxysmal atrial fibrillation; E03.9 Hypothyroidism, unspecified; N18.3 Chronic kidney disease, stage 3 (moderate); E66.3 Overweight; R74.0 Nonspecific elevation of levels of transaminase and lactic acid dehydrogenase [LDH]; R06.01 Orthopnea; X58.XXXA Exposure to other specified factors, initial encounter; F17.210 Nicotine dependence, cigarettes, uncomplicated; Z88.6 Allergy status to analgesic agent; Z79.899 Other long term (current) drug therapy; Z90.710 Acquired absence of both cervix and uterus; Z98.41 Cataract extraction status, right eye; Z98.42 Cataract extraction status, left eye; Z82.49 Family history of ischemic heart disease and other diseases of the circulatory system; Z81.1 Family history of alcohol abuse and dependence; Z90.49 Acquired absence of other specified parts of digestive tract; Z83.6 Family history of other diseases of the respiratory system; Y93.89 Activity, other specified; Y92.89 Other specified places as the place of occurrence of the external cause; Y99.8 Other external cause status; Z68.26 Body mass index [BMI] 26.0-26.9, adult

== ENCOUNTER 2018-06-02 16:23 | Emergency (ER) | payer MEDICARE, MEDICAID ==
[~2018-06-02] VITALS: Ht 170.1 cm; Wt 77.6 kg
[~2018-06-02 16:23] MED LIST changes: +DOXYCYCLINE100 M3 PO; +LEVOFLOXACIN500 MG PO; +PREDNISONE10 MG PO; +TRAZODONE150 MG PO
[2018-06-02] MEDS ORDERED: LEVAQUIN750 M1 PO (17:28)
== END 2018-06-02 19:55 | disposition home or self-care (01) ==
LOC: ED 16:23
DX: J18.1 Lobar pneumonia, unspecified organism (principal); Z88.6 Allergy status to analgesic agent; I13.0 Hypertensive heart and chronic kidney disease with heart failure and stage 1 through stage 4 chronic kidney disease, or unspecified chronic kidney disease; N18.3 Chronic kidney disease, stage 3 (moderate); I50.30 Unspecified diastolic (congestive) heart failure; J44.9 Chronic obstructive pulmonary disease, unspecified; E03.9 Hypothyroidism, unspecified; E66.3 Overweight; I48.0 Paroxysmal atrial fibrillation; Z79.2 Long term (current) use of antibiotics; Z79.899 Other long term (current) drug therapy; Z90.710 Acquired absence of both cervix and uterus; Z87.891 Personal history of nicotine dependence

== ENCOUNTER 2018-06-09 11:39 | Inpatient (IN) | payer MEDICARE, MEDICAID ==
[~2018-06-09] VITALS: Ht 170.2 cm; Wt 75.0 kg
--- NOTE | ~2018-06-09 | CON ---
[place], [place] REPORT OF CONSULTATION NAME: ETHAN MARIN UNIT #: [id number] ROOM: 405 DOCTOR: NAPOLEON WHITEHEAD MD BIRTHDATE: [birth year] DOS: 06/09/2018 CARDIOLOGY CONSULTATION REASON FOR CONSULTATION: Chest pain and vertigo. HISTORY OF PRESENT ILLNESS: The patient is an 83-year-old woman who follows with Cardiology for paroxysmal atrial fibrillation, which has become permanent. Her atrial fibrillation was first documented in June 2016. She was hospitalized again with atypical chest pain in September 2016. On both occasions, she was treated for atrial fibrillation with rapid ventricular response and has been maintained on rivaroxaban for stroke prophylaxis. She tells me that she is completely faithful to her rivaroxaban and has not missed any doses. She does not feel palpitations, lightheadedness or dyspnea. Up until a week or so ago, she was feeling well. She states that several days ago, she began having a cough. She presented to the Emergency Room where she was told she had pneumonia and was treated with an antibiotic. At about that same time, she began having problems with vertigo. She notes that the room seems to be spinning around her and she cannot catch her balance. She has to hold on to wall to walk. This is associated with nausea and she has vomited at least once. She has fallen once. She has not lost consciousness. She does believe that her left leg is somewhat weaker than the right. Last evening, she began to have a severe pain in her left axilla and under her left breast radiating into her left back. This was a new sensation for her and caused her some distress, so she came into the Emergency Room. The pain persists; however, she has no acute EKG changes and her troponins have been normal. PAST MEDICAL HISTORY: Includes: 1. Episodic atypical chest pain. She has had myocardial infarctions ruled out on several occasions in the past. 2. Paroxysmal atrial fibrillation, first documented in June 2016. She has been managed with rate control and anticoagulation. Recently, she appears to be in permanent atrial fibrillation. CHADS-VASc score is 4. 3. Chronic obstructive pulmonary disease with intermittent acute exacerbations. 4. Essential hypertension. 5. Remote history of cigarette abuse. 6. History of leg swelling, etiology not known. 7. Pharmacologic myocardial perfusion study on 10/17/2016, normal exam, ejection fraction 81%, low risk study. 8. Echocardiogram on 10/17/2016, normal left ventricular size with ejection fraction 55%, mild right ventricular dilation and mild left atrial dilation. 9. Hospitalization on 02/04/2018 with pneumonia. The patient did not have cardiac complaints during that admission. 10. Echocardiogram on 02/05/2018, left atrial size normal, left ventricular size, wall motion and systolic function normal with ejection fraction 60%, stage 3 diastolic relaxation abnormalities, mild mitral insufficiency, mild to moderate tricuspid insufficiency, right ventricular systolic pressure 38 mmHg. REVIEW OF SYSTEMS: The patient denies diplopia, but has had vertigo for the last several days. She has had nausea and vomiting and has been unsteady on her [place], [place] REPORT OF CONSULTATION NAME: ETHAN MARIN UNIT #: [id number] ROOM: [facility] DOCTOR: NAPOLEON WHITEHEAD MD BIRTHDATE: [birth year] feet. She denies any upper extremity focal weakness or loss of vision, but thinks that her left leg might be weak. She denies fevers, chills or sweats. She has had a nonproductive cough and increased dyspnea lately. She has had nausea and vomiting associated with the vertigo. She denies hemoptysis or hematemesis. She denies change in bowel or bladder habits and denies blood in her stools or urine. She denies any skin rashes. She denies heat or cold intolerance. She denies polyuria or polydipsia. She denies any recent leg swelling. The remainder of the review of systems is negative except as noted above. FAMILY HISTORY: Negative for early coronary artery disease. SOCIAL HISTORY: The patient has a remote history of alcohol and cigarette use. She has been abstinent for quite some. PHYSICAL EXAMINATION: GENERAL: The patient is a slender, elderly white female who is awake, alert and oriented. VITAL SIGNS: Pulse is 86 and irregularly irregular. Blood pressure is 130/72. She is afebrile. She does not have orthostatic hypotension. She weighs 75 kg and has a body mass index 25.9. HEENT: Normocephalic and atraumatic. Extraocular muscles are intact. Sclerae are clear. Pupils are equal, round and react to light. The oral mucosa is moist. Tongue is midline. NECK: Supple. She has no jugular distention. Carotids are full. I heard no bruits. She had no neck or supraclavicular masses. She has no thyromegaly. She does have lateral beating nystagmus, especially on left gaze. LUNGS: Respirations are unlabored. Her chest is clear on the right. She does have decreased breath sounds with crackles at the left base. CARDIOVASCULAR: Her heart has an irregularly irregular rhythm without murmurs, rubs or gallops. The PMI is not displaced. She has no precordial heave, lift or thrill. Her lateral chest is tender to palpation. This does reproduce her pain. ABDOMEN: Soft and normally active without masses, organomegaly or bruits. EXTREMITIES: No clubbing, cyanosis or edema. Peripheral pulses are diminished, but palpable in the feet. NEUROLOGIC: She is awake, alert and oriented. She has no upper extremity focal weakness. She has no upper extremity drift. She does have nystagmus as noted. Her extensors and flexors of the feet are strong. Her left hip flexors seem a little bit weak. LABORATORY DATA: Hemoglobin is 14.5, white count 9700 and platelet count 253,000. INR 1.3. Lactic acid level was 1.6. Troponin is normal. ProBNP is elevated at 2467. Sodium is 131, potassium 3.3, chloride 94, CO2 of 27, BUN 21, creatinine 1.33. Liver profile is normal. IMPRESSION: 1. Vertigo, etiology to be determined. Vertebrobasilar stroke could certainly present in this way or this could be related to labyrinthitis. 2. Atypical left lateral chest pain. This is probably musculoskeletal in [place], [place] REPORT OF CONSULTATION NAME: ETHAN MARIN UNIT #: [id number] ROOM: 405 DOCTOR: NAPOLEON WHITEHEAD MD BIRTHDATE: [birth year] origin from her severe coughing. 3. Possible bronchitis or pneumonia. 4. Permanent atrial fibrillation. The patient is on rivaroxaban and states that she is compliant with its use. 5. Essential hypertension. 6. Remote history of cigarette use. PLAN: We will review her CAT scan of the head when it is available. If it is unremarkable, I will probably ask that she have an MRI and MRA of the brain to evaluate for possible small early strokes. Carotid ultrasound has been requested as well. For now, we will keep her on the rivaroxaban. I will defer management of her bronchitis or pneumonia to her primary physicians. We will follow her with her other doctors and I thank the hospitalist physicians for asking our advice regarding her care. NAPOLEON WHITEHEAD MD CM:CONSTR:REPORT OF CONSULTATION 1602 06/09/182038 interface
--- NOTE | ~2018-06-09 | PR ---
[place], [place] PROGRESS NOTE NAME: ETHAN MARIN [facility] #: [id number] UNIT #: [id number] ROOM: 405 DOCTOR: NAPOLEON WHITEHEAD MD BIRTHDATE: [birth year] DOS: 06/11/2018 CARDIOLOGY PROGRESS NOTE SUBJECTIVE: The patient was seen today at her bedside, 06/11/2018, for followup of her vertigo. She is an 83-year-old woman who has a history of permanent atrial fibrillation, who presented to the hospital on this occasion with episodic vertigo and atypical chest pain. A CAT scan of her head showed no evidence for a stroke; however, I was concerned that this could be a vertebrobasilar episode. I therefore did request an MRI. Once again, this did not show any acute stroke. It did show chronic ischemic white matter changes, but no acute intracranial processes. A carotid ultrasound showed atherosclerotic plaque, but less than 50% stenoses bilaterally with normal antegrade vertebral flow. PHYSICAL EXAMINATION: VITAL SIGNS: Today, her pulse is 88 and irregularly irregular, blood pressure is 147/90. She is afebrile. NECK: Supple. She has no jugular distention. Carotids are full. LUNGS: Respirations are unlabored. CHEST: Clear. HEART: Has an irregularly irregular rhythm. EXTREMITIES: Showed no edema. LABORATORY DATA: Hemoglobin is 13.6, white count 8300, platelet count 228,000. Sodium 134, potassium 3.3, chloride 96, BUN 21, creatinine 1.19. She does seem to be stable from a cardiac standpoint. I think that it is most likely that her symptoms are due to labyrinthitis rather than an acute cerebral event. IMPRESSION: 1. Vertigo, probably due to labyrinthitis. 2. Atypical left lateral chest pain, most likely musculoskeletal from coughing. 3. Possible bronchitis or pneumonia. 4. Permanent atrial fibrillation. The patient is on rivaroxaban for stroke prophylaxis. 5. Essential hypertension. 6. Remote history of cigarette abuse. PLAN: I will defer management of her labyrinthitis to her primary physicians. No other cardiac workup is planned at this time. From my perspective, she can be discharged when it is shown that she tolerates her medication changes. I thank the hospitalist physicians for asking our advice regarding her care. [place], [place] PROGRESS NOTE NAME: ETHAN MARIN UNIT #: [id number] ROOM: 405 DOCTOR: NAPOLEON WHITEHEAD MD BIRTHDATE: [birth year] NAPOLEON WHITEHEAD MD CM:PNTRANS 1444 3 NAPOLEON WHITEHEAD MD 06/12/18221 interface
--- NOTE | ~2018-06-09 | EKG ---
[place], [place] ELECTROCARDIOGRAM REPORT NAME: ETHAN MARIN UNIT #: [id number] ROOM: 405 DOCTOR: JESSE DRAFT REPORT BIRTHDATE: [birth year] [facility] Test Date: 2018-06-09 Test Time: 11:46:16 Pat Name: ETHAN MARIN Department: Room: 405 Gender: F Structural Architect: ANUPAMA : 1935 Requested By: DIANA GONZALEZ Order Number: [id number] Reading MD: Cleveland Starr MD Measurements Intervals [place] Rate: 80 P: AK: QRS: -34 QRSD: 96 T: 17 QT: 376 QTc: 434 Interpretive Statements Atrial fibrillation Left axis deviation Borderline low voltage, extremity leads Compared to ECG 03/26/2018 08:30:34 No significant change Electronically Signed On 06-09-2018 13:45:00 PDT by Cleveland Starr MD CM:EKGRPT:ELECTROCARDIOGRAM REPORT 1146 1345 DIANA GONZALEZ EPIPHANY DRAFT REPORT DIANA GONZALEZ
--- NOTE | ~2018-06-09 | EKG ---
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
--- NOTE | ~2018-06-09 | EKG ---
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: Cecilia Serna : 1935 Requested By: DIANA GONZALEZ Order Number: [id number] Reading MD: Cleveland Starr MD Measurements Intervals [place] Rate: 87 P: [place]: QRS: -48 QRSD: 92 T: 11 QT: 371 QTc: 447 Interpretive Statements Atrial fibrillation Left anterior fascicular block Low voltage, precordial leads RSR' in V1 or V2, right VCD or RVH Compared to ECG 06/09/2018 14:26:43 Left anterior fascicular block now present Right ventricular hypertrophy now present RSR' in V1 or V2 now present Electronically Signed On 06-09-2018 18:42:34 PDT by Cleveland Starr MD CM:EKGRPT:ELECTROCARDIOGRAM REPORT [id number] DIANA GONZALEZ EPIPHANY DRAFT REPORT DIANA GONZALEZ
--- NOTE | ~2018-06-09 | PR ---
[place], [place] PROGRESS NOTE NAME: ETHAN MARIN UNIT #: [id number] ROOM: 405 DOCTOR: NAPOLEON WHITEHEAD MD BIRTHDATE: [birth year] DOS: 06/10/2018 CARDIOLOGY PROGRESS NOTE SUBJECTIVE: The patient was seen at her bedside today on 06/10/2018 for followup of atypical chest pain and vertigo. She states that the vertigo is still the same as it has been. Her chest pain is improving, but is still present. The cough remains present, but has decreased. PHYSICAL EXAMINATION: VITAL SIGNS: On exam, her pulse is 72 and irregularly irregular. Blood pressure is 130/80. She weighs 75.0 kg and has a body mass index of 25.9. NECK: Supple. She has no jugular distention. Carotids are full without bruits. LUNGS: Respirations are unlabored. She does have decreased breath sounds at the bases. HEART: Has an irregularly irregular rhythm without murmurs or gallops. The PMI is not displaced. ABDOMEN: Benign. EXTREMITIES: Showed no edema. Palpation of the left lateral chest does still reproduce her pains. IMPRESSION: 1. Vertigo, etiology to be determined. Differential includes vertebrobasilar stroke or labyrinthitis. 2. Atypical left lateral chest pain, most likely musculoskeletal in origin from coughing. 3. Possible bronchitis or pneumonia. 4. Permanent atrial fibrillation. The patient is on rivaroxaban and states that she is compliant with its use. 5. Essential hypertension. 6. Remote history of cigarette abuse. PLAN: We are awaiting the results of her MRI. If this shows no evidence for stroke, then we will assume that her symptoms are due to labyrinthitis and treat simply with Antivert or similar medications. If this does appear to be recurrent small strokes, we will add antiplatelet therapy such as clopidogrel to her regimen. Carotid ultrasound is also pending. We may need to add an MRA to her order list, but since her renal functions are marginal with an estimated GFR of 43, we will withhold that for the time being. I thank the hospitalist physicians for asking our advice regarding her care. [place], [place] PROGRESS NOTE NAME: ETHAN MARIN UNIT #: [id number] ROOM: 405 DOCTOR: NAPOLEON WHITEHEAD MD BIRTHDATE: [birth year] NAPOLEON WHITEHEAD MD CM:PNTRANS 1537 NAPOLEON WHITEHEAD MD 06/10/18 2148 interface
[2018-06-09 12:40] LABS: BASO % 0.4 % (0.0-1.0); EOS # 0.1 10*3/uL (0.0-0.4); EOS % 0.9 % (1.0-4.0); HEMATOCRIT 43.7 % (37.0-47.0); HEMOGLOBIN 14.5 g/dl (12.0-16.0); LYMPH # 2.3 10*3/uL (1.3-4.4); LYMPH % 23.8 % (27.0-41.0); MEAN CELL VOLUME 82.3 fl (81.0-99.0); MEAN CORPUSCULAR HGB 27.3 pg (27.0-31.0); MEAN CORPUSCULAR HGB CONC 33.2 g/dl (33.0-37.0); MEAN PLATELET VOLUME 10.3 fl (9.6-12.3); MONO # 1.2 10*3/uL (0.1-1.0); MONO % 12.7 % (3.0-9.0); PLATELET COUNT AUTOMATED 253 10*3/uL (130-400); RED BLOOD COUNT 5.31 10*6/uL (4.10-5.10); RED CELL DISTRI WIDTH 13.6 % (0-14.5); WHITE BLOOD COUNT 9.7 10*3/uL (4.8-10.8)
[2018-06-09] MEDS ORDERED: XARELTO10 MG PO (12:43)
[2018-06-09] MEDS ORDERED: TRAZODONE150 MG PO (12:44)
[2018-06-09] MEDS ORDERED: HYDROXYZINE HCL25 M1 PO (12:45)
[2018-06-09 12:49] LABS: ACT PARTIAL THROMBO TIME 47.4 SECONDS (20.8-31.5); INTERNATIONAL NORM RATIO 1.3 (2.0-3.5)
[2018-06-09 12:59] LABS: ALBUMIN 3.7 gm/dl (3.1-4.5); ALKALINE PHOSPHATASE 99 U/L (45-117); BUN 21 mg/dl (7-24); CHLORIDE 94 mmol/L (98-107); CREATININE 1.33 mg/dL (0.55-1.02); POTASSIUM 3.3 mmol/L (3.5-5.1); SGOT/AST 21 IU/L (3-35); SGPT/ALT 15 U/L (12-78); SODIUM 131 mmol/L (136-145); TOTAL PROTEIN 7.9 gm/dL (6.4-8.2)
[2018-06-09 13:01] LABS: TROPONIN I < 0.015 ng/ml (<0.045)
[2018-06-09 13:17] VITALS: BP 141/87
[2018-06-09 14:22] VITALS: BP 130/72
[2018-06-09] MEDS ORDERED: ADVAIR 250/501 EA INH (14:49)
[2018-06-09] MEDS ORDERED: SPIRIVA RESPIMAT4 G1 INH (14:51)
[2018-06-09 16:00] VITALS: BP 130/72
[2018-06-09 20:00] VITALS: BP 136/92
[2018-06-10] VITALS: BP 151/75
[2018-06-10 06:20] LABS: BASO # 0.1 10*3/uL (0.0-0.1); BASO % 0.7 % (0.0-1.0); EOS # 0.1 10*3/uL (0.0-0.4); EOS % 1.1 % (1.0-4.0); HEMATOCRIT 40.9 % (37.0-47.0); HEMOGLOBIN 13.6 g/dl (12.0-16.0); LYMPH # 2.2 10*3/uL (1.3-4.4); LYMPH % 26.7 % (27.0-41.0); MEAN CELL VOLUME 81.6 fl (81.0-99.0); MEAN CORPUSCULAR HGB 27.1 pg (27.0-31.0); MEAN CORPUSCULAR HGB CONC 33.3 g/dl (33.0-37.0); MEAN PLATELET VOLUME 10.6 fl (9.6-12.3); MONO # 1.4 10*3/uL (0.1-1.0); MONO % 16.9 % (3.0-9.0); NEUT # 4.5 10*3/uL (2.3-7.9); NEUT % 54.4 % (47.0-73.0); PLATELET COUNT AUTOMATED 228 10*3/uL (130-400); RED BLOOD COUNT 5.01 10*6/uL (4.10-5.10); RED CELL DISTRI WIDTH 13.6 % (0-14.5); WHITE BLOOD COUNT 8.3 10*3/uL (4.8-10.8)
[2018-06-10 06:47] LABS: CREATININE 1.19 mg/dL (0.55-1.02); FREE T4 1.43 ng/dl (0.76-1.46); PHOSPHOROUS 2.5 mg/dL (2.5-4.9); POTASSIUM 3.3 mmol/L (3.5-5.1)
[2018-06-10 06:53] LABS: THYROID STIM HORMONE (HS) 1.28 uIU/ml (0.358-4.75)
[2018-06-10 12:00] VITALS: BP 130/80
[2018-06-10 16:00] VITALS: BP 147/87
[2018-06-10 20:00] VITALS: BP 140/70
[2018-06-11] VITALS: BP 124/65
[2018-06-11 08:00] VITALS: BP 124/65
[2018-06-11 12:00] VITALS: BP 147/90
[2018-06-11 16:00] VITALS: BP 151/75
[2018-06-11 16:48] LABS: VITAMIN D, 25-HYDROXY 34.2 ng/mL (30-100)
[2018-06-11 20:00] VITALS: BP 153/86
[2018-06-12] VITALS: BP 131/99
[2018-06-12] MEDS ORDERED: HYDR25T PO (09:16)
[2018-06-12] MEDS ORDERED: MECLIZINE HYD12.5 MG PO (09:16)
== END 2018-06-12 10:50 | disposition home or self-care (01) | DRG 206 ==
LOC: ED 11:39 → EDHOLD 13:30 → 4E 13:30
PROVIDERS: Nurse Practitioner Family; Registered Nurse
DX: M94.0 Chondrocostal junction syndrome [Tietze] (principal); E44.0 Moderate protein-calorie malnutrition; E87.1 Hypo-osmolality and hyponatremia; I50.30 Unspecified diastolic (congestive) heart failure; I13.0 Hypertensive heart and chronic kidney disease with heart failure and stage 1 through stage 4 chronic kidney disease, or unspecified chronic kidney disease; Z68.25 Body mass index [BMI] 25.0-25.9, adult; I48.0 Paroxysmal atrial fibrillation; N18.3 Chronic kidney disease, stage 3 (moderate); E87.8 Other disorders of electrolyte and fluid balance, not elsewhere classified; E87.6 Hypokalemia; R79.89 Other specified abnormal findings of blood chemistry; E03.9 Hypothyroidism, unspecified; E55.9 Vitamin D deficiency, unspecified; R42 Dizziness and giddiness; I27.20 Pulmonary hypertension, unspecified; H83.09 Labyrinthitis, unspecified ear; J44.9 Chronic obstructive pulmonary disease, unspecified; Z88.6 Allergy status to analgesic agent; Z79.899 Other long term (current) drug therapy; Z87.01 Personal history of pneumonia (recurrent); Z90.710 Acquired absence of both cervix and uterus; Z98.42 Cataract extraction status, left eye; Z98.41 Cataract extraction status, right eye; Z87.891 Personal history of nicotine dependence; Z81.1 Family history of alcohol abuse and dependence; Z84.89 Family history of other specified conditions

== ENCOUNTER 2018-08-12 11:46 | Inpatient (IN) | payer MEDICARE, MEDICAID ==
[~2018-08-12] VITALS: Ht 170.1 cm; Wt 76.3 kg
--- NOTE | ~2018-08-12 | EKG ---
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 Electronically Signed On 08-13-2018 16:44:17 PST by Cleveland Starr MD CM:EKGRPT:ELECTROCARDIOGRAM REPORT 1755 1644 ОЛЬГА MOLINA DRAFT REPORT ОЛЬГА TOLENTINO MD
--- NOTE | ~2018-08-12 | EKG ---
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
--- NOTE | ~2018-08-12 | PR ---
[place], [place] PROGRESS NOTE [id number] UNIT #: [id number] ROOM: 408 DOCTOR: NAPOLEON WHITEHEAD MD BIRTHDATE: [birth year] DOS: 08/14/2018 CARDIOLOGY PROGRESS NOTE SUBJECTIVE: The patient was seen at her bedside today 08/14/2018 for followup of her permanent atrial fibrillation. She was admitted to the hospital on this occasion with increased dyspnea and chest discomfort. Chest x-ray on admission did show a left lower lobe area of atelectasis or consolidation and it was felt that she did have pneumonia. She is being treated for this and does seem to be feeling better. She does not have a fever. Her white count is elevated, but some of this may be related to the fact that she is receiving high dose steroids. Today, she denies any chest discomfort or palpitations and is breathing easily. PHYSICAL EXAMINATION: VITAL SIGNS: Today, her pulse is 90-110 and irregularly irregular. Blood pressure is 128/89. She is afebrile. NECK: Supple. She has no jugular distention or hepatojugular reflux. Carotids are full. There are no bruits. LUNGS: Respirations are unlabored. She has decreased breath sounds at the left base. There are no wheezes or rales. HEART: Has an irregularly irregular rhythm. There are no murmurs or gallops. ABDOMEN: Soft and normally active without masses, organomegaly or bruits. EXTREMITIES: Showed no edema. IMPRESSION: 1. Noncardiac chest pain. This appears to be musculoskeletal in origin or related to coughing. She does not show any signs of an acute coronary syndrome. 2. Vertigo, etiology for this is not apparent. It does not appear to be due to an acute stroke. Further evaluation by the ear, nose and throat specialist may be helpful as an outpatient. Orthostatic vital signs have been normal. 3. Permanent atrial fibrillation. 4. History of hypothyroidism, on replacement. 5. Respiratory infection, probable pneumonia. 6. History of hypertension. 7. History of remote cigarette use. PLAN: No other cardiac workup is planned at this time and we will continue to follow the patient intermittently. She will continue to receive supportive care from our perspective. Since her heart rate is somewhat elevated, I did ask her to increase her metoprolol slightly from 25 mg once a day to b.i.d. and we will continue to observe that on the monitor while she is here. I thank the hospitalist physicians for asking our advice regarding her care. [place], [place] PROGRESS NOTE NAME: ETHAN MARIN UNIT #: [id number] ROOM: [facility] DOCTOR: NAPOLEON WHITEHEAD MD BIRTHDATE: [birth year] NAPOLEON WHITEHEAD MD CM:PNTRANS 2 27 NAPOLEON WHITEHEAD MD 08/14/18 1626 interface
--- NOTE | ~2018-08-12 | EKG ---
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
--- NOTE | ~2018-08-12 | CON ---
[place], [place] REPORT OF CONSULTATION NAME: [facility]IN [id number] UNIT #: [id number] ROOM: 408 DOCTOR: NAPOLEON WHITEHEAD MD BIRTHDATE: [birth year] DOS: 08/13/2018 CARDIOLOGY CONSULTATION REASON FOR CONSULTATION: Chest pain and vertigo. HISTORY: The patient is an 83-year-old woman who has a history of permanent atrial fibrillation, which was first documented in 06/2016. She was hospitalized with atypical chest pain in 09/2016. On both occasions, she was treated with atrial fibrillation and rapid ventricular response. She has been maintained on rivaroxaban for stroke prophylaxis. She is very faithful with her medications and has not missed any doses. She was hospitalized in May when she presented with musculoskeletal chest pain, cough and vertigo. A CAT scan and MRI of the brain did not show any evidence for a stroke and she was managed conservatively. Since she has been at home, she has had good and bad days. Lately, however, her cough and dyspnea have gotten worse. She states that her cough is not very productive, but it is "severe." When she coughs, she does note increased chest pain radiating across her chest and back. She denies fevers or chills. She was seen by her attendance secretary, Dr. Banerjee, as an outpatient and was treated with azithromycin and steroids without benefit. She came into the hospital yesterday because her dyspnea and cough had worsened. She also noticed more chest pain with the cough. Since she has been hospitalized, her electrocardiogram has shown atrial fibrillation with a controlled ventricular response. Serial troponin levels have been normal and she shows no acute EKG changes. Her chest x-ray does show left lower lobe consolidation. She is being treated for pneumonia and states that she already feels considerably better than admission. In addition, she has noticed persistence of her vertigo. She describes episodes where she feels that the room is spinning around. This was present on her last admission. It does not happen "all the time," but is disturbing to her. PAST HISTORY: Includes: 1. Episodic atypical chest pain. Myocardial infarction has been ruled out on several occasions in the past and has been ruled out on this admission as well. 2. Atrial fibrillation, first documented in 06/2016. She has been managed with rate control and anticoagulation and appears to be in permanent atrial fibrillation at this time. [id number] score is 4 and she is on rivaroxaban for stroke prophylaxis. 3. Chronic obstructive pulmonary disease with intermittent acute exacerbations. 4. Essential hypertension. 5. Hypothyroidism, on replacement. 6. Remote history of cigarette abuse. 7. History of chronic leg edema. 8. Pharmacologic myocardial perfusion study on 10/17/2016, normal examination. Ejection fraction 81%. Low risk study. 9. Echocardiogram on 02/05/2018, normal left atrial size, left ventricular size, wall motion and systolic function with ejection fraction 60%, stage 3 [place], [place] REPORT OF CONSULTATION NAME: ETHAN MARIN UNIT #: [id number] ROOM: 408 DOCTOR: NAPOLEON WHITEHEAD MD BIRTHDATE: [birth year] diastolic relaxation abnormalities, mild mitral insufficiency, moderate tricuspid insufficiency, right ventricular systolic pressure mildly elevated at 38 mmHg. REVIEW OF SYSTEMS: The patient denies diplopia, but does have intermittent vertigo. She has had nausea and unsteadiness and walks with a walker. She denies focal weakness or loss of vision. She denies fevers, chills or sweats. She has had a persistent cough with increased dyspnea lately. She denies hemoptysis or hematemesis. She denies change in bowel or bladder habits and denies blood in her stools or urine. She denies any skin rashes. She denies heat or cold intolerance. She denies polyuria or polydipsia. She denies any worsening of her chronic leg swelling. Remainder of the review of systems is negative except as noted above. MEDICATIONS: Prior to admission, Advair Diskus 1 puff b.i.d., Spiriva 1 puff daily, hydrochlorothiazide 25 mg daily, hydroxyzine 25 mg at bedtime, levothyroxine 100 mcg daily, losartan with hydrochlorothiazide 100/25 one tablet daily, meclizine 12.5 mg b.i.d. with an occasional extra pill as needed for dizziness, metoprolol succinate 25 mg daily, rivaroxaban 20 mg daily, trazodone 150 mg at bedtime and vitamin D 600 units b.i.d. ALLERGIES: The patient lists allergies to ASPIRIN, which cause hives and LEVOFLOXACIN. FAMILY HISTORY: Negative for early coronary artery disease. SOCIAL HISTORY: The patient has remote history of alcohol and cigarette use. She has been abstinent for several years, however. PHYSICAL EXAMINATION: GENERAL: The patient is a slender, elderly white female who is awake, alert and oriented. VITAL SIGNS: Pulse is 88 and irregularly irregular, blood pressure 132/88. She is afebrile. She weighs 76.3 kg and has a body mass index of 26.4. HEENT: Normocephalic and atraumatic. Extraocular muscles are intact. Sclerae are clear. Pupils are equal, round and react to light. The oral mucosa is moist. Tongue is midline. NECK: Supple. She has no jugular distention or hepatojugular reflux. Carotids are full. There are no bruits. She has no neck or supraclavicular masses. LUNGS: Respirations are unlabored. CHEST: Had decreased breath sounds at the bases, especially at the left base. She has slight dullness at the left base. She has no wheezes or rales. She has no presacral edema or chest wall tenderness. CARDIOVASCULAR: Her heart has an irregularly irregular rhythm without murmurs or gallops. PMI is not displaced. There is no precordial heave, lift or thrill. ABDOMEN: Soft and normally active without masses, organomegaly or bruits. EXTREMITIES: Showed no edema. Peripheral pulses are diminished, but palpable in the feet. [place], [place] REPORT OF CONSULTATION NAME: ETHAN MARIN UNIT #: [id number] ROOM: [facility] DOCTOR: NAPOLEON WHITEHEAD MD BIRTHDATE: [birth year] LABORATORY DATA: Hemoglobin is 12.5, white count 10,800, platelet count 252,000. Sodium 131, potassium 3.8, BUN 21, creatinine 1.38. Serial troponin levels have been negative. IMPRESSION: 1. Noncardiac chest pain. The patient's pain is related to her cough. She shows no signs of an acute coronary syndrome. 2. Vertigo, etiology for this is not apparent, but does not appear to be due to an acute stroke. Further evaluation by an ear, nose and throat specialist may be helpful. For now, we will check orthostatic vital signs, but I doubt we will find anything significant. 3. Permanent atrial fibrillation. 4. History of hypothyroidism, on replacement. 5. Probable pneumonia. 6. History of hypertension. 7. History of remote cigarette use. PLAN: We will continue to follow the patient with her other physicians, but no other cardiac workup is planned at this time. We thank the hospitalist physicians for asking our advice regarding her care. NAPOLEON WHITEHEAD MD CM:CONSTR:REPORT OF CONSULTATION 0959 08/13/18 1734 interface
[~2018-08-12 11:46] MED LIST changes: +HYDR25T PO; +HYDROXYZINE HCL25 M1 PO; +MECLIZINE HYD12.5 MG PO; +SPIRIVA RESPIMAT4 G1 INH; +XARELTO10 MG PO
[2018-08-12 11:51] VITALS: BP 112/57
[2018-08-12 12:24] LABS: BASO # 0.1 10*3/uL (0.0-0.1); BASO % 0.5 % (0.0-1.0); EOS % 0.4 % (1.0-4.0); HEMATOCRIT 39.9 % (37.0-47.0); HEMOGLOBIN 13.4 g/dl (12.0-16.0); LYMPH # 2.6 10*3/uL (1.3-4.4); LYMPH % 25.1 % (27.0-41.0); MEAN CELL VOLUME 81.1 fl (81.0-99.0); MEAN CORPUSCULAR HGB 27.2 pg (27.0-31.0); MEAN CORPUSCULAR HGB CONC 33.6 g/dl (33.0-37.0); MEAN PLATELET VOLUME 10.3 fl (9.6-12.3); MONO % 9.8 % (3.0-9.0); NEUT # 6.6 10*3/uL (2.3-7.9); NEUT % 63.9 % (47.0-73.0); PLATELET COUNT AUTOMATED 267 10*3/uL (130-400); RED BLOOD COUNT 4.92 10*6/uL (4.10-5.10); RED CELL DISTRI WIDTH 13.9 % (0-14.5); WHITE BLOOD COUNT 10.3 10*3/uL (4.8-10.8)
[2018-08-12 12:33] LABS: ACT PARTIAL THROMBO TIME 48.7 SECONDS (20.8-31.5); INTERNATIONAL NORM RATIO 1.4 (2.0-3.5)
[2018-08-12 12:40] LABS: ALBUMIN 3.6 gm/dl (3.1-4.5); ALKALINE PHOSPHATASE 100 U/L (45-117); BUN 17 mg/dl (7-24); CHLORIDE 93 mmol/L (98-107); CREATININE 1.18 mg/dL (0.55-1.02); POTASSIUM 3.8 mmol/L (3.5-5.1); SGOT/AST 14 IU/L (3-35); SGPT/ALT 15 U/L (12-78); SODIUM 129 mmol/L (136-145); TOTAL PROTEIN 7.4 gm/dL (6.4-8.2); TROPONIN I < 0.015 ng/ml (<0.045)
[2018-08-12 14:04] VITALS: BP 147/82
[2018-08-12 14:40] VITALS: BP 149/93
[2018-08-12] MEDS ORDERED: MECLIZINE HYD12.5 MG PO (14:53)
[2018-08-12 15:29] VITALS: BP 149/93
[2018-08-12 16:00] VITALS: BP 149/93
[2018-08-12 20:00] VITALS: BP 137/76
[2018-08-13] VITALS: BP 110/63
[2018-08-13 07:34] LABS: BASO % 0.1 % (0.0-1.0); HEMATOCRIT 37.2 % (37.0-47.0); HEMOGLOBIN 12.5 g/dl (12.0-16.0); LYMPH % 9.6 % (27.0-41.0); MEAN CELL VOLUME 80.9 fl (81.0-99.0); MEAN CORPUSCULAR HGB 27.2 pg (27.0-31.0); MEAN CORPUSCULAR HGB CONC 33.6 g/dl (33.0-37.0); MEAN PLATELET VOLUME 10.4 fl (9.6-12.3); MONO # 0.2 10*3/uL (0.1-1.0); MONO % 1.5 % (3.0-9.0); NEUT # 9.5 10*3/uL (2.3-7.9); NEUT % 88.4 % (47.0-73.0); PLATELET COUNT AUTOMATED 252 10*3/uL (130-400); RED CELL DISTRI WIDTH 13.8 % (0-14.5); WHITE BLOOD COUNT 10.8 10*3/uL (4.8-10.8)
[2018-08-13 07:46] LABS: CREATININE 1.38 mg/dL (0.55-1.02); PHOSPHOROUS 2.4 mg/dL (2.5-4.9); POTASSIUM 3.8 mmol/L (3.5-5.1)
[2018-08-13 07:55] VITALS: BP 132/88
[2018-08-13 11:59] VITALS: BP 137/63
[2018-08-13 16:00] VITALS: BP 96/63
[2018-08-13 18:17] VITALS: BP 114/72
[2018-08-13 20:00] VITALS: BP 112/75
[2018-08-14] VITALS: BP 118/62
[2018-08-14 04:00] VITALS: BP 128/73
[2018-08-14 07:15] LABS: CREATININE 1.2 mg/dL (0.55-1.02); PHOSPHOROUS 2.9 mg/dL (2.5-4.9); POTASSIUM 3.9 mmol/L (3.5-5.1)
[2018-08-14 07:34] LABS: HEMATOCRIT 36.4 % (37.0-47.0); HEMOGLOBIN 11.8 g/dl (12.0-16.0); MEAN CELL VOLUME 82.4 fl (81.0-99.0); MEAN CORPUSCULAR HGB 26.7 pg (27.0-31.0); MEAN CORPUSCULAR HGB CONC 32.4 g/dl (33.0-37.0); MEAN PLATELET VOLUME 10.6 fl (9.6-12.3); PLATELET COUNT AUTOMATED 263 10*3/uL (130-400); RED BLOOD COUNT 4.42 10*6/uL (4.10-5.10); RED CELL DISTRI WIDTH 14.4 % (0-14.5); WHITE BLOOD COUNT 16.7 10*3/uL (4.8-10.8)
[2018-08-14 08:00] VITALS: BP 128/89
[2018-08-14 08:26] LABS: PLATELET SUFFICIENCY NORMAL (NORMAL); TOTAL CELLS COUNTED 100 #CELLS
[2018-08-14 12:00] VITALS: BP 131/69
[2018-08-14 16:00] VITALS: BP 138/92
[2018-08-14 20:00] VITALS: BP 137/84
[2018-08-15] VITALS: BP 141/86
[2018-08-15 07:31] LABS: BASO % 0.1 % (0.0-1.0); HEMATOCRIT 36.3 % (37.0-47.0); HEMOGLOBIN 12.1 g/dl (12.0-16.0); LYMPH # 0.9 10*3/uL (1.3-4.4); LYMPH % 7.1 % (27.0-41.0); MEAN CELL VOLUME 82.9 fl (81.0-99.0); MEAN CORPUSCULAR HGB 27.6 pg (27.0-31.0); MEAN CORPUSCULAR HGB CONC 33.3 g/dl (33.0-37.0); MEAN PLATELET VOLUME 10.5 fl (9.6-12.3); MONO # 0.7 10*3/uL (0.1-1.0); MONO % 5.3 % (3.0-9.0); NEUT # 11.1 10*3/uL (2.3-7.9); NEUT % 86.7 % (47.0-73.0); PLATELET COUNT AUTOMATED 257 10*3/uL (130-400); RED BLOOD COUNT 4.38 10*6/uL (4.10-5.10); RED CELL DISTRI WIDTH 14.6 % (0-14.5); WHITE BLOOD COUNT 12.7 10*3/uL (4.8-10.8)
[2018-08-15 07:42] LABS: BUN 21 mg/dl (7-24); CHLORIDE 102 mmol/L (98-107); CREATININE 0.97 mg/dL (0.55-1.02); POTASSIUM 4.7 mmol/L (3.5-5.1); SODIUM 133 mmol/L (136-145)
[2018-08-15 08:00] VITALS: BP 130/80
[2018-08-15 12:00] VITALS: BP 162/87
[2018-08-15] MEDS ORDERED: VENTOLIN 02.5 MG/3 M INH (12:08)
[2018-08-15] MEDS ORDERED: PREDNISONE10 MG PO (12:08)
[2018-08-15] MEDS ORDERED: TEMAZEPAM15 M1 PO (12:08)
[2018-08-15] MEDS ORDERED: METOPROLOL SUCC25 M2 PO (12:08)
[2018-08-15] MEDS ORDERED: VIBRAMYCIN100 MG PO (12:08)
== END 2018-08-15 13:40 | disposition home or self-care (01) | DRG 177 ==
LOC: ED 11:46 → EDHOLD 13:03 → 4E 13:03
PROVIDERS: Emergency Medicine; Internal Medicine; Student in an Organized Health Care Education/Training Program
DX: J15.6 Pneumonia due to other Gram-negative bacteria (principal); J96.01 Acute respiratory failure with hypoxia; E87.1 Hypo-osmolality and hyponatremia; I50.32 Chronic diastolic (congestive) heart failure; D68.59 Other primary thrombophilia; E44.1 Mild protein-calorie malnutrition; J44.0 Chronic obstructive pulmonary disease with (acute) lower respiratory infection; I13.0 Hypertensive heart and chronic kidney disease with heart failure and stage 1 through stage 4 chronic kidney disease, or unspecified chronic kidney disease; J98.11 Atelectasis; M94.0 Chondrocostal junction syndrome [Tietze]; R07.89 Other chest pain; N18.3 Chronic kidney disease, stage 3 (moderate); I48.0 Paroxysmal atrial fibrillation; E03.9 Hypothyroidism, unspecified; I27.20 Pulmonary hypertension, unspecified; F41.9 Anxiety disorder, unspecified; K21.9 Gastro-esophageal reflux disease without esophagitis; I08.1 Rheumatic disorders of both mitral and tricuspid valves; D72.810 Lymphocytopenia; E87.8 Other disorders of electrolyte and fluid balance, not elsewhere classified; E55.9 Vitamin D deficiency, unspecified; G47.00 Insomnia, unspecified; R42 Dizziness and giddiness; Z68.26 Body mass index [BMI] 26.0-26.9, adult; Z87.01 Personal history of pneumonia (recurrent); Z90.710 Acquired absence of both cervix and uterus; Z87.891 Personal history of nicotine dependence; Z82.49 Family history of ischemic heart disease and other diseases of the circulatory system; Z88.6 Allergy status to analgesic agent; Z81.1 Family history of alcohol abuse and dependence; Z88.1 Allergy status to other antibiotic agents; Z79.899 Other long term (current) drug therapy

== ENCOUNTER 2018-10-02 20:35 | Inpatient (IN) | payer MEDICARE, MEDICAID ==
[~2018-10-02] VITALS: Ht 170.1 cm; Wt 80.5 kg
--- NOTE | ~2018-10-02 | EKG ---
[place], [place] ELECTROCARDIOGRAM REPORT NAME: ETHAN MARIN UNIT #: [id number] ROOM: 519 DOCTOR: LENORAANY DRAFT REPORT BIRTHDATE: [birth year] 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 Begum : 1935 Requested By: MARCELL LEÓN Order Number: [id number] Reading MD: Cleveland Starr MD Measurements Intervals [place] Rate: 122 P: [place]: QRS: -28 QRSD: 89 T: 34 QT: 336 QTc: 479 Interpretive Statements Atrial fibrillation with rapid ventricular response Borderline left axis deviation Low voltage, precordial leads Abnormal R-wave progression, late transition Compared to ECG 08/12/2018 17:55:46 Low QRS voltage now present Otherwise, no significant change Electronically Signed On 10-04-2018 9:38:25 PST by Cleveland Starr MD CM:EKGRPT:ELECTROCARDIOGRAM REPORT [id number] MARCELL MOLINA DRAFT REPORT MARCELL LEÓN MD
--- NOTE | ~2018-10-02 | CON ---
[place], [place] REPORT OF CONSULTATION [id number] UNIT #: [id number] ROOM: 519 DOCTOR: AYANA HOOPER MDTED BIRTHDATE: [birth year] DOS: 10/04/2018 PULMONARY CONSULTATION, EVALUATION, AND MANAGEMENT CONSULTATION REQUESTED BY: Hospitalist service. REASON FOR CONSULTATION: For assessment of acute pneumonia. HISTORY OF PRESENT ILLNESS: This is an 83-year-old white female patient who has been known to me from the past with history of COPD. She has been treated for that. The patient has been recently hospitalized in July 2018 and treated at that time for acute exacerbation of COPD and some other problems. The patient stated that she has been noted with gradual weight gain, which has been recurrent slowly. Her weight has increased from 162 pounds, which I have been recorded in my office during the assessment 07/23/2018 and currently noted as more than 170 pounds. The patient stated he has been retaining some fluid on the extremities. She does have cough with some sputum expectoration. Denies symptoms of chest pain. She does complain of symptoms of general weakness with that. The cough has been noted mild without any sputum expectoration. She also reported symptoms of wheezing intermittently. REVIEW OF SYSTEMS: CONSTITUTIONAL: Fatigue and tiredness reported with body aches. Subjective symptoms of fever. There were no chills reported. EYES: Denies any burning, redness, or tenderness. EARS, NOSE, AND THROAT: Denies sore throat, hoarseness, otalgia, postnasal drainage or epistaxis. CARDIOVASCULAR: Denies any palpitations or angina. The patient reported symptoms of intermittent edema of the lower extremities. GASTROINTESTINAL: Denies dysphagia, nausea, vomiting, diarrhea, abdominal pain, hematemesis, melena, hematochezia, abnormal weight loss, or dysphagia. GENITOURINARY: No dysuria, suprapubic pain, hematuria. MUSCULOSKELETAL: The patient denies any acute joint pain, but noted aches on admission. There were no deformity reported. CENTRAL NERVOUS SYSTEM: No dizziness, headache, diplopia, syncopal episodes. Remaining systems were reviewed with the patient, they were noted all negative. PAST MEDICAL HISTORY: 1. COPD. 2. Congestive heart failure, diastolic dysfunction. 3. Essential hypertension. 4. Hypothyroidism. 5. Hypercoagulation. 6. Permanent atrial fibrillation. 7. History of pulmonary hypertension. 8. Vitamin D deficiency. PAST SURGICAL HISTORY: 1. Reported as bilateral cataract extraction, lens implantation. [place], [place] REPORT OF CONSULTATION [facility]: [id number] UNIT #: [id number] ROOM: [facility] DOCTOR: AUGUSTO GORDON MDM BIRTHDATE: [birth year] 2. Complete Hysterectomy. 3. Bladder surgery. 4. Laparoscopic cholecystectomy. 5. Bladder neck suspension. SOCIAL HISTORY: The patient is , has 5 children, lives at home. Denies history of alcohol use, illicit drug use. Tobacco use was known from the age of [age] years old, 1.5 pack of cigarettes per day until 2004. FAMILY HISTORY: The patient's father at age of 60 with severe complications of chronic alcohol use. Mother at 57 years old, complication related to acute pulmonary embolism. CURRENT MEDICATIONS: Which were administered in this hospitalization were noted as meclizine, trazodone, Xarelto 20 mg, losartan, metoprolol succinate, levothyroxine, Solu-Medrol 40 mg b.i.d., Mucinex 1200 mg p.o. b.i.d., Pulmicort Respules, DuoNeb q.6 hours and other p.r.n. medications. DRUG ALLERGY HISTORY: Noted as: 1. ASPIRIN. 2. LEVAQUIN. PHYSICAL EXAMINATION: GENERAL: An 83-year-old female who has been noted currently awake and alert without acute distress. Height of 5 feet 7 inches, weight 274 pounds, BMI 27. VITAL SIGNS: For the patient which has been recorded showed the temperature noted as normal, respiratory rate 16-20, heart rate of 84 on admission, heart rate of 131 beats per minute. Blood pressure ranging between 128/76 and 122/58. Intake for last 24 hours of 1000 mL, output 300 mL without Michael catheter collection. The pulse oxygen on room air 91%-94% saturation. HEENT: Head was atraumatic. Eyes nonicterus. NECK: Supple. CARDIOVASCULAR: S1, S2 is audible. LUNGS: The patient noted scattered wheezing and crackles of the lungs bilaterally. ABDOMEN: Soft, nontender. EXTREMITIES: Shows mild edema. SKIN: No lesions or rashes. CENTRAL NERVOUS SYSTEM: The patient's cranial nerves 2-12 intact. No focal deficit. LABORATORY DATA: Lactic acid on 10/02/2018 was 1.3. CBC in Emergency Room on 10/02/2018, WBC count 13.4, hemoglobin, hematocrit and platelet count normal. The PT, PTT on 10/02/2018, INR 1.3, later use of Xarelto, normal PTT. BMP 10/02/2018, BUN 20, creatinine 1.35, glucose 127, sodium 132. The CBC that was done this morning, WBC count is 14.5, hemoglobin and hematocrit normal, platelet count 230,000. Normal renal function panel this morning as sodium of 135, BUN of 24, creatinine 1.42, glucose 140, CO2 was 20. CBC this morning, WBC count 14.5, hemoglobin and hematocrit normal, platelet count normal. Blood culture for the patient, which was done on 10/02/2018 as normal. [place], [place] REPORT OF CONSULTATION NAME: ETHAN MARIN UNIT #: [id number] ROOM: [facility] DOCTOR: AUGUSTO GORDON MDM BIRTHDATE: [birth year] REVIEW OF THE RADIOLOGY DATA: The chest x-ray that was done one view in the Emergency Room, was noted with cardiomegaly somewhat towards the right side. The patient exaggerating the problem patient as well. Questionable infiltration. The patient was considered in the left lower lobe. IMPRESSION: 1. The patient will be currently admitted to the hospital, the patient's symptoms of increased weight gain, shortness of breath, possible consideration of acute congestive heart failure, diastolic dysfunction as well. The last echocardiogram was done the patient and reviewed with the findings of mild pulmonary hypertension, as well as diastolic dysfunction for the patient and the echocardiogram 02/05/2018. Mild mitral valve regurgitation was also seen. 2. Question of pneumonia considered versus area of atelectasis as well from admission. 3. The patient with acute exacerbation of chronic obstructive pulmonary disease as well. The patient has been known with history of moderate chronic obstructive pulmonary disease. 4. Elevation of BUN and creatinine may be related to diuretic with intravascular volume depletion. 5. Past history of nicotine dependence discontinued since 2014. 6. Atrial fibrillation with rapid ventricular response. PLAN OF MANAGEMENT: For further clarification current abnormality. CT scan of the chest will be ordered to assess accurate current pulmonary abnormalities. The patient is noted with acute kidney injury. For chronic kidney disease, taking Xarelto 20 mg, consider reducing the dose to prevent toxicity related to the Xarelto. Continuation of the steroids and bronchodilators at this time. Diuretic care for diuresis. Consider repeat echocardiogram to reassess the progression of pulmonary hypertension as well. Other therapy, plan of management to be continued as in progress. Additional treatment changes will be ordered based on progression of the illness. If the patient does have productive sputum, the sputum for Gram-stain and culture will be done. Hold off the antibiotics since the suspicion of pneumonia was not noted very likely with current clinical assessment. Continue other previous home medications as well. The patient continue to maximize the management of the atrial fibrillation as well on current admission. Thanks for allowing me to participate in the care of this patient. [place], [place] REPORT OF CONSULTATION NAME: ETHAN MARIN UNIT #: [id number] ROOM: [facility] DOCTOR: TED GORDON MD BIRTHDATE: [birth year] TED PIÑA MD CM:CONSTR:REPORT OF CONSULTATION 1608 10/15/18 1034 interface
--- NOTE | ~2018-10-02 | PR ---
[place], [place] PROGRESS NOTE NAME: ETHAN MARIN UNIT #: [id number] ROOM: 519 DOCTOR: TED GORDON MD BIRTHDATE: [birth year] DOS: 10/05/2018 PULMONARY PROGRESS NOTE SUBJECTIVE: The patient was noted much comfortable with reduction in edema of lower extremities, improving symptoms of shortness of breath. Denies symptoms of chest pain, fever or chills. Mild cough was noted without any sputum expectoration. Denies symptoms of wheezing. OBJECTIVE: VITAL SIGNS: For the patient which were recorded showed the temperature noted as normal. Respiratory rate of the patient recorded as 20, heart rate of 94, blood pressure 120/80-111/76. Pulse oxygen saturation on room air was 96% saturation recorded. HEENT: Head was atraumatic. Eyes nonicterus. NECK: Supple. CARDIOVASCULAR SYSTEM: S1, S2 is audible. LUNGS: The patient was noted without any wheeze or crackle at the present time. ABDOMEN: Soft, nontender, bowel sounds present. EXTREMITIES: Mild edema noted. No clubbing or cyanosis. LABORATORY DATA: CT scan of the chest that was done yesterday shows a consideration for interstitial edema noted with moderate hiatal hernia. Small bilateral pleural fluid was also noted as well. IMPRESSION: 1. The current findings were noted highly suggestive of acute congestive heart failure, which has been improving gradually and clinically. There was no evidence of pneumonia at the present time. 2. Pulmonary hypertension related to the congestive heart failure likely. 3. Stable chronic obstructive pulmonary disease. PLAN OF TREATMENT: No change from the pulmonary standpoint. Consideration of discharge on oral diuretic for further medical management of congestive heart failure per recommendation of Cardiology services and the primary care attending. No additional change in treatment will be necessary today. Continue other previous plan and management previously in progress from the pulmonary standpoint. [place], [place] PROGRESS NOTE NAME: ETHAN MARIN UNIT #: [id number] ROOM: 519 DOCTOR: TED GORDON MD BIRTHDATE: [birth year] TED PIÑA MD CM:PNTRANS 1009 TED HOOPER MD 10/06/18 0206 interface
--- NOTE | ~2018-10-02 | PROC NOTE ---
[place], [place] PROCEDURE NOTE NAME: ETHAN MARIN UNIT #: [id number] ROOM: [facility] DOCTOR: RAUDEL HODGE BIRTHDATE: [birth year] DOS: 10/04/2018 MODIFIED BARIUM SWALLOW LOCATION: [facility]. ROOM: [facility], Bed 1. ORDERING PHYSICIAN: Dr. Catalan. RADIOLOGIST: Dr. Mckee. BACKGROUND INFORMATION: The patient is an 83-year-old female who was seen for modified barium swallow. This test was ordered due to pneumonia with suspected aspiration. The patient was alert and oriented and reported no difficulty swallowing, but stated that she recently felt like food was sticking in her throat. She has had recurrent pneumonia. She currently receives a regular diet and thin liquids. At current time, respiratory status was within normal limits. Oral peripheral examination revealed presence of upper denture only. Lingual, labial, and buccal skills were within normal limits in terms of strength, range of motion, and coordination. The patient was able to volitionally cough and swallow. METHODS AND MATERIALS USED FOR THE EXAM: The patient was positioned in the lateral plane and the exam was viewed under fluoroscopy. The patient was presented with a variety of consistencies to assess swallowing skills including applesauce mixed with barium presented in half teaspoon amounts, barium-coated cookie and sandwich given in bite-size pieces and thin liquid barium taken by cup and straw in single and consecutive sip-size amounts. ORAL PHASE: Unremarkable. PHARYNGEAL PHASE: Unremarkable. ESOPHAGEAL PHASE: This phase of the swallow was not formally assessed during this exam. IMPRESSIONS AND RECOMMENDATIONS: Based upon assessment results, this 83-year-old patient presents with oral and pharyngeal swallowing skills that are within normal limits. There was no penetration, aspiration and no residue. Recommend she remain on present diet with use of safe swallow precautions such as small bites and sips, chewing thoroughly and alternating liquid and solid. Short-term followup with 1 visit is recommended to ensure adherence to safe swallow precautions. Thank you very much for this referral. Should you have any questions regarding this patient, please contact the speech pathologist at [phone]. [place], [place] PROCEDURE NOTE NAME: ETHAN MARIN UNIT #: [id number] ROOM: [facility] DOCTOR: RAUDEL HODGE BIRTHDATE: [birth year] RAUDEL HODGE CM:ANGELO:PROCEDURE NOTE [id number] RAUDEL HODGE
[~2018-10-02 20:35] MED LIST changes: +LEVOTHYROXINE100 MC1 PO; +TEMAZEPAM15 M1 PO; +VENTOLIN 02.5 MG/3 M INH; +VIBRAMYCIN100 MG PO
[2018-10-02 20:38] VITALS: BP 158/110
[2018-10-02 21:01] VITALS: BP 155/90
[2018-10-02 21:38] LABS: BASO # 0.1 10*3/uL (0.0-0.1); BASO % 0.4 % (0.0-1.0); EOS % 0.1 % (1.0-4.0); HEMOGLOBIN 13.7 g/dl (12.0-16.0); LYMPH # 1.6 10*3/uL (1.3-4.4); MEAN CELL VOLUME 81.8 fl (81.0-99.0); MEAN CORPUSCULAR HGB 27.3 pg (27.0-31.0); MEAN CORPUSCULAR HGB CONC 33.4 g/dl (33.0-37.0); MEAN PLATELET VOLUME 10.4 fl (9.6-12.3); MONO # 1.1 10*3/uL (0.1-1.0); MONO % 8.1 % (3.0-9.0); NEUT # 10.6 10*3/uL (2.3-7.9); PLATELET COUNT AUTOMATED 277 10*3/uL (130-400); RED BLOOD COUNT 5.01 10*6/uL (4.10-5.10); RED CELL DISTRI WIDTH 14.9 % (0-14.5); WHITE BLOOD COUNT 13.4 10*3/uL (4.8-10.8)
[2018-10-02 21:47] LABS: ACT PARTIAL THROMBO TIME 39.3 SECONDS (20.8-31.5); INTERNATIONAL NORM RATIO 1.3 (2.0-3.5)
[2018-10-02 21:54] LABS: ALBUMIN 3.6 gm/dl (3.1-4.5); ALKALINE PHOSPHATASE 102 U/L (45-117); BUN 20 mg/dl (7-24); CHLORIDE 97 mmol/L (98-107); CREATININE 1.35 mg/dL (0.55-1.02); LIPASE 203 U/L (73-393); POTASSIUM 3.9 mmol/L (3.5-5.1); SGOT/AST 23 IU/L (3-35); SGPT/ALT 16 U/L (12-78); SODIUM 132 mmol/L (136-145); TOTAL PROTEIN 7.9 gm/dL (6.4-8.2)
[2018-10-02 21:56] LABS: TROPONIN I < 0.015 ng/ml (<0.045)
[2018-10-02 23:10] LABS: BILIRUBIN NEGATIVE (NEGATIVE); BLOOD TRACE-LYSED (NEGATIVE); CLARITY CLEAR (CLEAR); COLOR YELLOW (YELLOW); GLUCOSE NEGATIVE (NEGATIVE); KETONE NEGATIVE (NEGATIVE); LEUKO ESTERASE NEGATIVE (NEGATIVE); NITRITE NEGATIVE (NEGATIVE); PH 7.5 (5.0-9.0); SPECIFIC GRAVITY 1.015 (1.005-1.030); UROBILINOGEN 0.2 E.U./dl (0.2-1.0)
[2018-10-02 23:23] LABS: BACTERIA TRACE; EPITHELIAL CELLS 15-20; RBC 0-2 rbc/hpf (0-2)
[2018-10-03] VITALS: BP 136/82
[2018-10-03 00:50] VITALS: BP 134/84
[2018-10-03] MEDS ORDERED: MECLIZINE HYD12.5 MG PO (02:36)
[2018-10-03 07:12] LABS: BASO % 0.3 % (0.0-1.0); HEMATOCRIT 39.2 % (37.0-47.0); HEMOGLOBIN 12.8 g/dl (12.0-16.0); LYMPH # 0.8 10*3/uL (1.3-4.4); LYMPH % 8.7 % (27.0-41.0); MEAN CELL VOLUME 82.9 fl (81.0-99.0); MEAN CORPUSCULAR HGB 27.1 pg (27.0-31.0); MEAN CORPUSCULAR HGB CONC 32.7 g/dl (33.0-37.0); MEAN PLATELET VOLUME 10.7 fl (9.6-12.3); MONO # 0.2 10*3/uL (0.1-1.0); NEUT # 8.2 10*3/uL (2.3-7.9); NEUT % 88.5 % (47.0-73.0); PLATELET COUNT AUTOMATED 240 10*3/uL (130-400); RED BLOOD COUNT 4.73 10*6/uL (4.10-5.10); RED CELL DISTRI WIDTH 14.9 % (0-14.5); WHITE BLOOD COUNT 9.3 10*3/uL (4.8-10.8)
[2018-10-03 07:17] LABS: ALBUMIN 3.2 gm/dl (3.1-4.5); CREATININE 1.26 mg/dL (0.55-1.02); FREE T4 1.24 ng/dl (0.76-1.46); PHOSPHOROUS 1.9 mg/dL (2.5-4.9); POTASSIUM 3.9 mmol/L (3.5-5.1); TOTAL PROTEIN 7.4 gm/dL (6.4-8.2)
[2018-10-03 07:22] LABS: THYROID STIM HORMONE (HS) 1.51 uIU/ml (0.358-4.75)
[2018-10-03 07:39] VITALS: BP 120/80
[2018-10-03 11:20] VITALS: BP 137/97
[2018-10-03 20:00] VITALS: BP 122/71
[2018-10-03 20:59] VITALS: BP 122/58
[2018-10-04] VITALS: BP 113/61
[2018-10-04 06:57] LABS: BASO % 0.1 % (0.0-1.0); HEMATOCRIT 36.6 % (37.0-47.0); HEMOGLOBIN 12.3 g/dl (12.0-16.0); LYMPH # 1.2 10*3/uL (1.3-4.4); LYMPH % 8.4 % (27.0-41.0); MEAN CELL VOLUME 82.1 fl (81.0-99.0); MEAN CORPUSCULAR HGB 27.6 pg (27.0-31.0); MEAN CORPUSCULAR HGB CONC 33.6 g/dl (33.0-37.0); MEAN PLATELET VOLUME 10.3 fl (9.6-12.3); MONO # 0.7 10*3/uL (0.1-1.0); MONO % 4.5 % (3.0-9.0); NEUT # 12.5 10*3/uL (2.3-7.9); NEUT % 86.3 % (47.0-73.0); PLATELET COUNT AUTOMATED 230 10*3/uL (130-400); RED BLOOD COUNT 4.46 10*6/uL (4.10-5.10); RED CELL DISTRI WIDTH 14.9 % (0-14.5); WHITE BLOOD COUNT 14.5 10*3/uL (4.8-10.8)
[2018-10-04 07:22] LABS: ALBUMIN 3.3 gm/dl (3.1-4.5); CREATININE 1.42 mg/dL (0.55-1.02); PHOSPHOROUS 3.6 mg/dL (2.5-4.9); POTASSIUM 3.5 mmol/L (3.5-5.1)
[2018-10-04 08:05] VITALS: BP 128/76
[2018-10-04 12:00] VITALS: BP 127/89
[2018-10-04 16:00] VITALS: BP 145/71
[2018-10-04 20:00] VITALS: BP 111/76
[2018-10-05 06:58] LABS: BASO % 0.1 % (0.0-1.0); HEMATOCRIT 35.1 % (37.0-47.0); HEMOGLOBIN 11.1 g/dl (12.0-16.0); LYMPH # 0.9 10*3/uL (1.3-4.4); LYMPH % 6.6 % (27.0-41.0); MEAN CELL VOLUME 84.6 fl (81.0-99.0); MEAN CORPUSCULAR HGB 26.7 pg (27.0-31.0); MEAN CORPUSCULAR HGB CONC 31.6 g/dl (33.0-37.0); MEAN PLATELET VOLUME 10.7 fl (9.6-12.3); MONO # 0.8 10*3/uL (0.1-1.0); MONO % 5.3 % (3.0-9.0); NEUT # 12.3 10*3/uL (2.3-7.9); NEUT % 87.3 % (47.0-73.0); PLATELET COUNT AUTOMATED 224 10*3/uL (130-400); RED BLOOD COUNT 4.15 10*6/uL (4.10-5.10); RED CELL DISTRI WIDTH 15.3 % (0-14.5); WHITE BLOOD COUNT 14.1 10*3/uL (4.8-10.8)
[2018-10-05 07:20] LABS: CREATININE 1.4 mg/dL (0.55-1.02)
[2018-10-05 08:00] VITALS: BP 122/80
[2018-10-05] MEDS ORDERED: LASIX20 MG PO (10:30)
[2018-11-05] MEDS ORDERED: FUROSEMIDE40 MG PO (13:57)
[2018-11-05] MEDS ORDERED: METOPROLOL TAR100 M1 PO (13:57)
[2018-11-05] MEDS ORDERED: XARE15TA PO (13:57)
[2018-11-05] MEDS ORDERED: DOXYCYCLINE MO100 M1 PO (13:57)
[2018-11-05] MEDS ORDERED: DOXYCYCLINE100 M3 PO (13:58)
[2018-11-05] MEDS ORDERED: PREDNISONE10 MG PO (13:59)
[2019-01-05] MEDS ORDERED: LIPITOR40 MG PO (20:43)
[2019-01-05] MEDS ORDERED: AMLODIPINE BESYL5 MG PO (20:43)
[2019-01-09] MEDS ORDERED: METOPROLOL TAR100 M1 PO (15:34)
[2019-01-09] MEDS ORDERED: DILTIAZEM 24HR120 MG PO (15:34)
[2019-02-25] MEDS ORDERED: RESTORIL15 MG PO (19:43)
[2019-02-25] MEDS ORDERED: ALDACTONE25 M1 PO (20:55)
[2019-03-02] MEDS ORDERED: PREDNISONE10 MG PO (11:53)
[2019-03-02] MEDS ORDERED: DOXYCYCLINE100 M3 PO (11:53)
[2019-03-19] MEDS ORDERED: VITAMIN D400 UNI1 PO (09:51)
== END 2018-10-05 11:45 | disposition home or self-care (01) | DRG 871 ==
LOC: ED 20:35 → EDHOLD 23:29 → 5E 23:29
PROVIDERS: Emergency Medicine Emergency Medical Services; Family Medicine; Internal Medicine; ADMIT Internal Medicine
PROC: BD1BYZZ Fluoroscopy of Mouth/Oropharynx using Other Contrast (ICD-10-PCS; principal; 2018-10-04)
DX: A41.9 Sepsis, unspecified organism (principal); J18.9 Pneumonia, unspecified organism; N17.0 Acute kidney failure with tubular necrosis; J96.01 Acute respiratory failure with hypoxia; E87.1 Hypo-osmolality and hyponatremia; E44.1 Mild protein-calorie malnutrition; J44.0 Chronic obstructive pulmonary disease with (acute) lower respiratory infection; I50.32 Chronic diastolic (congestive) heart failure; D68.59 Other primary thrombophilia; I13.0 Hypertensive heart and chronic kidney disease with heart failure and stage 1 through stage 4 chronic kidney disease, or unspecified chronic kidney disease; J44.1 Chronic obstructive pulmonary disease with (acute) exacerbation; N18.3 Chronic kidney disease, stage 3 (moderate); E87.8 Other disorders of electrolyte and fluid balance, not elsewhere classified; I27.20 Pulmonary hypertension, unspecified; I34.0 Nonrheumatic mitral (valve) insufficiency; R73.9 Hyperglycemia, unspecified; R80.9 Proteinuria, unspecified; K44.9 Diaphragmatic hernia without obstruction or gangrene; J84.10 Pulmonary fibrosis, unspecified; D72.810 Lymphocytopenia; I48.2 Chronic atrial fibrillation; Z96.1 Presence of intraocular lens; E03.9 Hypothyroidism, unspecified; E55.9 Vitamin D deficiency, unspecified; G47.00 Insomnia, unspecified; I48.0 Paroxysmal atrial fibrillation; Z88.1 Allergy status to other antibiotic agents; Z88.6 Allergy status to analgesic agent; Z87.01 Personal history of pneumonia (recurrent); Z87.891 Personal history of nicotine dependence; Z82.49 Family history of ischemic heart disease and other diseases of the circulatory system; Z90.710 Acquired absence of both cervix and uterus; Z81.1 Family history of alcohol abuse and dependence; Z98.42 Cataract extraction status, left eye; Z98.41 Cataract extraction status, right eye; Z79.899 Other long term (current) drug therapy; Z90.49 Acquired absence of other specified parts of digestive tract; Z68.27 Body mass index [BMI] 27.0-27.9, adult

== ENCOUNTER 2018-10-08 17:04 | Inpatient (IN) | payer MEDICARE, MEDICAID ==
[~2018-10-08] VITALS: Ht 170.1 cm; Wt 72.6 kg
[2018-10-08] VITALS (7 sets, daily range): BP systolic 140–195; BP diastolic 90–108
--- NOTE | ~2018-10-08 | EKG ---
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: [place] Valentino : 1935 Requested By: PRABHAKAR IBANEZ Order Number: [id number] Reading MD: Watson Flores Measurements Intervals [place] Rate: 102 P: GA: QRS: -43 QRSD: 97 T: 51 QT: 377 QTc: 492 Interpretive Statements Atrial fibrillation with RVR Left anterior fascicular block RSR' in V1 or V2, right VCD or RVH Borderline prolonged QT interval Compared to ECG 10/02/2018 21:27:37 Left anterior fascicular block now present Right ventricular hypertrophy now present RSR' in V1 or V2 now present Electronically Signed On 10-12-2018 12:34:08 PST by Watson Flores CM:EKGRPT:ELECTROCARDIOGRAM REPORT [id number] 1234 PRABHAKAR IBANEZ EPIPHANY DRAFT REPORT PRABHAKAR IBANEZ
--- NOTE | ~2018-10-08 | EKG ---
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
--- NOTE | ~2018-10-08 | PR ---
[place], [place] PROGRESS NOTE NAME: ETHAN MARIN UNIT #: [id number] ROOM: 410 DOCTOR: MARIELY ARNOLD MD BIRTHDATE: [birth year] DOS: 10/11/2018 CARDIOLOGY FOLLOWUP NOTE REASON FOR VISIT: Congestive heart failure and hypertension. SUBJECTIVE: The patient is feeling better. She wants to go home. Denies any chest pain or palpitation, no dizziness, no edema, no orthopnea, no fever and chills. No nausea, vomiting, or diarrhea. REVIEW OF SYSTEMS: Review of the 8 systems negative except as mentioned above. OBJECTIVE: VITAL SIGNS: Blood pressure 132/72, pulse 88, respiratory rate 18, and weight 72.3 kilos. GENERAL: Alert, comfortable, in no acute distress. HEAD AND NECK: Pupils are round and equal. No jaundice. Tongue was moist and pharynx clear. NECK: Supple, no distended neck veins, no carotid bruit. CHEST: Symmetrical, nontender. LUNGS: Clear to auscultation bilaterally. HEART: Regular rhythm, no S3, no palpable thrills. ABDOMEN: Benign, nontender. Bowel sounds normal. EXTREMITIES: Showed no edema. Distal pulses palpable. SKIN: Warm and dry. No cyanosis, no clubbing. RECTAL: Deferred. MEDICATIONS AND LABORATORIES: Reviewed. IMPRESSION: 1. Acute on chronic diastolic heart failure resolved. 2. Chronic kidney disease. 3. Hypertension. 4. Atrial fibrillation, currently rate controlled. RECOMMENDATIONS: 1. Continue current medications. 2. Check her BMP today. If her renal function is acceptable, she can be discharged home today. 3. Continue rest of her cardiac medications. 4. No family at bedside at the time of examination. [place], [place] PROGRESS NOTE NAME: ETHAN MARIN UNIT #: [id number] ROOM: 410 DOCTOR: MARIELY ARNOLD MD BIRTHDATE: [birth year] MARIELY ARNOLD MD CM:PNTRANS 2258 0716 MARIELY ARNOLD MD 10/12/18 0717 interface
--- NOTE | ~2018-10-08 | PR ---
[place], [place] PROGRESS NOTE NAME: ETHAN MARIN UNIT #: [id number] ROOM: 410 DOCTOR: MARIELY ARNOLD MD BIRTHDATE: [birth year] DOS: 10/10/2018 REASON FOR VISIT: Congestive heart failure and atrial fibrillation. SUBJECTIVE: The patient is feeling better. Denies any chest pain, shortness of breath. No palpitations, no PND, no orthopnea. No bladder or bowel symptoms. REVIEW OF SYSTEMS: Review of the 8 systems negative except as mentioned above. PHYSICAL EXAMINATION: VITAL SIGNS: Blood pressure 124/76, pulse 99, respirations 18, weight 75.4 kilos. RHYTHM STRIPS: The patient is in atrial fibrillation. GENERAL: Alert, comfortable, no acute distress. NECK: Supple, no distended neck veins, no carotid bruit. CHEST: Symmetrical, nontender. LUNGS: A few scattered rhonchi. HEART: Irregularly irregular, grade 1/6 systolic murmur. ABDOMEN: Benign, nontender. Bowel sounds normal. EXTREMITIES: Showed trace edema. Distal pulses palpable. SKIN: Warm and dry. No cyanosis, no clubbing. RECTAL: Deferred. GENITOURINARY: Deferred. MEDICATIONS AND ALLERGIES: Reviewed. LABORATORY DATA: Pertinent labs including creatinine 1.53, potassium 3.7. IMPRESSION: 1. Acute on chronic diastolic heart failure. 2. Atrial fibrillation with rapid ventricular rate. 3. Pulmonary hypertension. 4. Hypertension. 5. Chronic kidney disease. 6. Chronic obstructive pulmonary disease. RECOMMENDATIONS: Continue her beta todd, dose was increased yesterday. Currently rate is controlled. Continue Xarelto for anticoagulation. We will discontinue IV Lasix today and start her on p.o. Lasix 40 mg once daily. Watch blood pressure and her kidney function tomorrow. If unremarkable, she can be discharged home tomorrow. No family at bedside at the time of my examination. [place], [place] PROGRESS NOTE NAME: ETHAN MARIN UNIT #: [id number] ROOM: 410 DOCTOR: MARIELY ARNOLD MD BIRTHDATE: [birth year] MARIELY ARNOLD MD CM:JAZ 20 0 MARIELY ARNOLD MD 10/11/18331 interface
--- NOTE | ~2018-10-08 | EKG ---
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
--- NOTE | ~2018-10-08 | EKG ---
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: SHIMA : 1935 Requested By: JOSE JULIAN Order Number: [id number] Reading MD: Watson Flores Measurements Intervals [place] Rate: 83 P: [place]: QRS: -42 QRSD: 94 T: 35 QT: 389 QTc: 457 Interpretive Statements Atrial fibrillation with controlled ventricular rates Left anterior fascicular block RSR' in V1 or V2, right VCD or RVH Consider anterior infarct Compared to ECG 10/02/2018 21:27:37 Left anterior fascicular block now present Right ventricular hypertrophy now present RSR' in V1 or V2 now present Myocardial infarct finding now present Electronically Signed On 10-12-2018 12:33:50 PST by Watson Flores CM:EKGRPT:ELECTROCARDIOGRAM REPORT 1722 1233 JOSE RODRIGUES DRAFT REPORT JOSE JULIAN DO
--- NOTE | ~2018-10-08 | EKG ---
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
[~2018-10-08 17:04] MED LIST changes: +LASIX20 MG PO
[2018-10-08 17:29] LABS: BASO % 0.2 % (0.0-1.0); EOS # 0.1 10*3/uL (0.0-0.4); EOS % 0.9 % (1.0-4.0); HEMATOCRIT 44.4 % (37.0-47.0); HEMOGLOBIN 14.5 g/dl (12.0-16.0); LYMPH # 3.5 10*3/uL (1.3-4.4); LYMPH % 27.3 % (27.0-41.0); MEAN CELL VOLUME 82.5 fl (81.0-99.0); MEAN CORPUSCULAR HGB CONC 32.7 g/dl (33.0-37.0); MEAN PLATELET VOLUME 10.1 fl (9.6-12.3); MONO # 1.2 10*3/uL (0.1-1.0); MONO % 9.5 % (3.0-9.0); NEUT # 7.9 10*3/uL (2.3-7.9); NEUT % 61.3 % (47.0-73.0); NUCLEATED RED BLOOD CELL 0.3 % (0.0-0.0); PLATELET COUNT AUTOMATED 280 10*3/uL (130-400); RED BLOOD COUNT 5.38 10*6/uL (4.10-5.10); RED CELL DISTRI WIDTH 14.8 % (0-14.5); WHITE BLOOD COUNT 12.9 10*3/uL (4.8-10.8)
--- NOTE | 2018-10-08 17:33 | NUR ---
[place] 2.4 DR JULIAN AWARE
[2018-10-08 17:43] LABS: ACT PARTIAL THROMBO TIME 37.9 SECONDS (20.8-31.5); INTERNATIONAL NORM RATIO 1.3 (2.0-3.5)
[2018-10-08 17:49] LABS: ALBUMIN 3.5 gm/dl (3.1-4.5); ALKALINE PHOSPHATASE 115 U/L (45-117); BUN 23 mg/dl (7-24); CHLORIDE 92 mmol/L (98-107); CREATININE 1.37 mg/dL (0.55-1.02); LIPASE 382 U/L (73-393); POTASSIUM 3.1 mmol/L (3.5-5.1); SGOT/AST 22 IU/L (3-35); SGPT/ALT 33 U/L (12-78); SODIUM 132 mmol/L (136-145); TOTAL PROTEIN 8.2 gm/dL (6.4-8.2)
[2018-10-08 17:54] LABS: TROPONIN I < 0.015 ng/ml (<0.045)
--- NOTE | 2018-10-08 18:07 | NUR ---
SITTING IN BED VISITING WITH DAUGHTER. NO DISTRESS NOTED.
--- NOTE | 2018-10-08 18:50 | NUR ---
SITTING UP IN BED EATING TERRIE CRACKERS TALKING WITH FAMILY.
--- NOTE | 2018-10-08 20:00 | NUR ---
A 83, admitted to 4E, under the services of FER Chanel DO with a diagnosis of ACUTE HEART FAILURE. Chief complaint is SHORTNESS OF BREARTH. Patient arrived via CART from ER. Monitor applied. Initial assessment completed. Vital signs taken and recorded. FER CHNAEL DO notified of admission to the unit. Orders received. See assessment for past medical history, medications and allergies. Patient and/or family oriented to unit. [facility] visitation policy reviewed. Clothing/patient valuable form completed. PAUL BRITO
--- NOTE | 2018-10-08 20:46 | NUR ---
CONTACTED DR. WHITEHEAD'S OFFICE FOR CONSULT.
--- NOTE | 2018-10-08 22:50 | NUR ---
PATIENT RESTING IN BED WITH EYES CLOSED. RESPS EASY AND REGULAR. ARROUSES EASILY. NO NEEDS MADE. DENIES CHEST PAIN OR PRESSURE. BED IN LOWEST POSITION, CALL LIGHT IN REACH
--- NOTE | 2018-10-08 23:45 | NUR ---
PT REFUSED BOTH EKG AND NEXT AEROSOL TX. NURSE INFORMED
[2018-10-09] VITALS: BP 147/74
--- NOTE | 2018-10-09 00:19 | NUR ---
PATIENT REFUSING BREATHING TREATMENT AND EKG
--- NOTE | 2018-10-09 04:10 | NUR ---
PATIENT RESTING IN BED WITH EYES CLOSED. RESPS EASY AND REGULAR. NO S/S OF DISTRESS. BED IN LOWEST POSITION, CALL LIGHT IN REACH
[2018-10-09 06:20] LABS: BASO % 0.3 % (0.0-1.0); EOS # 0.1 10*3/uL (0.0-0.4); EOS % 0.7 % (1.0-4.0); HEMATOCRIT 41.1 % (37.0-47.0); HEMOGLOBIN 13.4 g/dl (12.0-16.0); LYMPH # 2.4 10*3/uL (1.3-4.4); LYMPH % 22.4 % (27.0-41.0); MEAN CELL VOLUME 82.7 fl (81.0-99.0); MEAN CORPUSCULAR HGB CONC 32.6 g/dl (33.0-37.0); MEAN PLATELET VOLUME 10.5 fl (9.6-12.3); MONO # 1.1 10*3/uL (0.1-1.0); MONO % 10.4 % (3.0-9.0); NEUT % 65.6 % (47.0-73.0); PLATELET COUNT AUTOMATED 251 10*3/uL (130-400); RED BLOOD COUNT 4.97 10*6/uL (4.10-5.10); RED CELL DISTRI WIDTH 14.7 % (0-14.5); WHITE BLOOD COUNT 10.6 10*3/uL (4.8-10.8)
[2018-10-09 06:36] LABS: POTASSIUM 3.1 mmol/L (3.5-5.1)
[2018-10-09 06:41] LABS: CREATININE 1.28 mg/dL (0.55-1.02); PHOSPHOROUS 3.4 mg/dL (2.5-4.9)
[2018-10-09 08:00] VITALS: BP 158/76
--- NOTE | 2018-10-09 08:22 | NUR ---
PATIENT IS COMFORTABLY SITTING IN BED WAITING TO EAT BREAKFAST. NO C/O OF SOB OR ANY PAIN/DISCOMFORT. STATES SHE IS TIRED BUT OTHER THAN THAT FEELS FINE. JOVANNA TREJOCC
--- NOTE | 2018-10-09 09:00 | NUR ---
Enrollment Manager in to talk to patient. Patient states lives at home with daughter. There are few steps in the home. Physician: vinayak cisneros Pharmacy: [facility] health services: [facility], [facility], Patient's level of ADLs: INDEPENDENT Patient has working utilities: all working DME: walker, shower chair Follow-up physician's appointment after d/c: will be made by hospitalist nurse director upon discharge Does patient want to access PORTAL?: no Discharge plan discussed with patient, patient lives at home with daughter, she states she is independent in adls and ambulation, patient was recently discharged from the hospital. discussed with her a short term care home for rehab prior to going back home, patient declined, stated she would be going home when able and wants to resume [facility]. case management will send referral to [facility] for when patient is medically stable for discharge. LENNY ABRAHAM
--- NOTE | 2018-10-09 09:40 | NUR ---
PATIENT ATE ALL HER BREAKFAST AND IS SITTING UP IN CHAIR RELAXING. HAS NO COMPLAINTS OF SOB OR PAIN. HR WAS IN HIGH 90'S UPON AMBULATION BUT STEADILY DECREASED TO LOW 80'S ONCE SITUATED IN CHAIR. JOVANNA VALDES
--- NOTE | 2018-10-09 10:00 | NUR ---
PAIN IS NOW RATED 4 OUT 10 STATED MEDICATION HELP NO COMPLAINTS AT THIS TIME WENDY LIMU.RCC
--- NOTE | 2018-10-09 10:22 | NUR ---
PATIENT STATES SHE FEELS FINE BESIDES BEING TIRED. CURRENTLY LYING BACK IN BED ATTEMPTING TO REST FOR A LITTLE BEFORE LUNCH TIME. JOVANNA VALDES
--- NOTE | 2018-10-09 10:38 | NUR ---
PATIENT STATED WILL GET SHOWERED AND EAT AT HOME DUE TO DISCHARGE NO COMPLAINTS AT THIS TIME WENDY LIMU.RCC
--- NOTE | 2018-10-09 10:57 | NUR ---
PATIENT STATED SHE SHOWERED AT HOME AND DOES NOT WANT TO SHOWER/ WASH UP UNTIL SHE GOES BACK HOME. JOVANNA VALDES
[2018-10-09 12:00] VITALS: BP 144/86
--- NOTE | 2018-10-09 12:47 | NUR ---
PATIENT REFUSED TO USE URINE MEASURING HAT WHEN AMBULATING TO THE BATHROOM. EXPLAINED IMPORTANCE OF PROPER MEASUREMENT AND ENCOURAGED TO USE NEXT TIME WHEN USING THE RESTROOM. WILL MONITOR FOR MEASURED OUTPUT. PATIENT HAS NO C/O AT THIS TIME. JOVANNA VALDES
--- NOTE | 2018-10-09 14:17 | NUR ---
Occupational Therapy evaluation offered to patient this pm. Patient in bed with daughter sleeping in chair next to bed. Patient denies any therapy needs. She feel that she is independent in all ADL, functional mobility and needs no therapy at this time. Discharge OT order per patients request. Thank you. Seamus Haywood OTR/l
--- NOTE | 2018-10-09 14:29 | NUR ---
PHYSICAL THERAPY Patient reports she is 100 % (I) with all functional mobility. No PT skills/needs. D/c PT at this time. Thank you for this referral. Maria Eugenia Royal,PT
[2018-10-09 16:00] VITALS: BP 137/67
--- NOTE | 2018-10-09 19:19 | NUR ---
PATIENT SITTING IN BED COMPLETING BREATHING TREATMENT. REQUESTING ICE CREAM. REMINDED PATIENT TO USE CALL LIGHT FOR HELP WHEN NEEDING TO GET UP DUE TO DIZZINESS. BED IN LOWEST POSITION, CALL LIGHT IN REACH
[2018-10-09 20:00] VITALS: BP 110/66
--- NOTE | 2018-10-10 | NUR ---
PATIENT REFUSING VITALS AT THIS TIME
--- NOTE | 2018-10-10 02:38 | NUR ---
PATIENT RESTING IN BED WITH NO S/S OF DISTRESS. RESPS EASY AND REGULAR. BED IN LOWEST POSITION, CALL LIGHT IN REACH
[2018-10-10 06:00] LABS: BASO % 0.3 % (0.0-1.0); EOS # 0.1 10*3/uL (0.0-0.4); EOS % 1.1 % (1.0-4.0); HEMATOCRIT 42.5 % (37.0-47.0); HEMOGLOBIN 13.7 g/dl (12.0-16.0); LYMPH # 2.8 10*3/uL (1.3-4.4); MEAN CELL VOLUME 84.2 fl (81.0-99.0); MEAN CORPUSCULAR HGB 27.1 pg (27.0-31.0); MEAN CORPUSCULAR HGB CONC 32.2 g/dl (33.0-37.0); MEAN PLATELET VOLUME 10.4 fl (9.6-12.3); MONO # 1.1 10*3/uL (0.1-1.0); PLATELET COUNT AUTOMATED 258 10*3/uL (130-400); RED BLOOD COUNT 5.05 10*6/uL (4.10-5.10); RED CELL DISTRI WIDTH 14.9 % (0-14.5)
[2018-10-10 06:15] LABS: CREATININE 1.53 mg/dL (0.55-1.02); POTASSIUM 3.7 mmol/L (3.5-5.1)
[2018-10-10 08:16] VITALS: BP 124/70
--- NOTE | 2018-10-10 09:00 | NUR ---
case management visits with patient, patient states she will be going home when able and will have [facility], no other needs at this time
[2018-10-10 13:40] VITALS: BP 108/83
--- NOTE | 2018-10-10 13:51 | NUR ---
PATIENT COMPLAINING OF CHEST PAIN AT THIS TIME. PATIENT STATES THE PAIN IS "UNDER HER BREAST" AND RADIATING TO HER PAIN. VITAL SIGNS STABLE AT THIS TIME. DOCTOR AWARE. AWAITING ORDERS AT THIS TIME.
--- NOTE | 2018-10-10 14:18 | NUR ---
CALLED INTO PATIENTS ROOM. FAMILY UPSET AND WANTING TO TALK TO A DOCTOR DUE TO PATIENT BEING IN PAIN. DOCTOR CALLED AND STATED SHE WILL COME UP TO SEE PATIENT. EKG COMPLETE. LAB DRAWING BLOOD AT THIS TIME FOR TROPONIN. MORPHINE ORDERED FOR PATIENT AT THIS TIME.
--- NOTE | 2018-10-10 14:34 | NUR ---
PATIENT MEDICATED WITH MORPHINE AT THIS TIME FOR COMPLAINTS OF CHEST PAIN THAT RADIATES TO HER FACE AND BACK. DOCTOR IN ROOM WITH PATIENT AT THIS TIME. PATIENT STATES THE PAIN IS STARTING TO GO AWAY.
--- NOTE | 2018-10-10 16:00 | NUR ---
PATIENT SLEEPING AT THIS TIME. NO S/S OF DISTRESS NOTED.
--- NOTE | 2018-10-10 16:30 | NUR ---
DR. ARNOLD IN TO SEE PATIENT AT THIS TIME. ORDERED TO D/C IV LASIX AND START PATIENT ON 40 MG LASIX PO STARTING TOMORROW. STATED PATIENT SHOULD BE ABLE TO BE DISCHARGED TOMORROW. MADE AWARE OF PATIENT HAVING CHEST PAIN EARLIER TODAY.
--- NOTE | 2018-10-10 16:45 | NUR ---
IN TO CHECK ON PATIENT AT THIS TIME. PATIENT RECIEVED 1700 MEDICATIONS. PATIENT DENIES ANY PAIN AT THIS TIME. PATIENT DENIES ANY NEEDS OR CONCERNS AT THIS TIME. BED ALARM INTACT.
--- NOTE | 2018-10-10 17:23 | NUR ---
SPOKE WITH PATIENTS SON AT THIS TIME. UPDATED ON PATIENTS CONDITION. NO NEEDS OR CONCERNS VOICED AT THIS TIME.
--- NOTE | 2018-10-10 19:32 | NUR ---
PATIENT AWAKE IN BED EATING ICE CREAM AT THIS TIME. PATIENT DENIES ANY NEEDS OR CONCERNS AT THIS TIME. PATIENT DENIES PAIN.
[2018-10-10 20:00] VITALS: BP 104/68
--- NOTE | 2018-10-10 20:50 | NUR ---
SPOKE WITH DR. IBANEZ AT THIS TIME CONCERNING PATIENT'S HEART RATE BEING 84 AND BLOOD PRESSURE 104/68 AND PATIENT HAVING 50 MG OF LOPRESSOR ORDERED. DR. IBANEZ STATES TO STILL GIVE MEDICATION TO PATIENT.
--- NOTE | 2018-10-10 21:39 | NUR ---
WALKED INTO ROOM TO GIVE PATIENT 2200 MEDICATIONS. PATIENT STATES " THIS HOSPITAL HAS SOMETHING AGAINST ME SLEEPING, I AM GOING TO PUT A CHAIR IN FRONT OF THE DOOR SO YOU CANT COME IN ANYMORE." PATIENT TOOK MEDICATIONS AND STATED THAT " NO ONE BETTER COME IN MY ROOM ANYMORE TONIGHT."
--- NOTE | 2018-10-10 22:30 | NUR ---
24 HR chart check completed.
[2018-10-11 08:00] VITALS: BP 132/70
--- NOTE | 2018-10-11 08:21 | NUR ---
PT REFUSING BED ALARM.
--- NOTE | 2018-10-11 09:00 | NUR ---
case management visits with patient, patient will be going home when medically stable. [facility] will see her at home, patient denies any other needs at this time
[2018-10-11 09:23] LABS: ALBUMIN 3.4 gm/dl (3.1-4.5); CREATININE 1.94 mg/dL (0.55-1.02); POTASSIUM 3.7 mmol/L (3.5-5.1); TOTAL PROTEIN 7.8 gm/dL (6.4-8.2)
[2018-10-11] MEDS ORDERED: FUROSEMIDE40 MG PO (10:14)
[2018-10-11] MEDS ORDERED: METOPROLOL TART50 M1 PO (10:14)
--- NOTE | 2018-10-11 10:44 | NUR ---
[facility] Discharge instructions reviewed with patient/family. Patient receptive and verbalizes understanding. Follow-up care arranged. Written instructions given to patient/family. CLARISSA HOSKINS
[2018-11-05] MEDS ORDERED: DOXYCYCLINE MO100 M1 PO (13:57)
[2018-11-05] MEDS ORDERED: FUROSEMIDE40 MG PO (13:57)
[2018-11-05] MEDS ORDERED: XARE15TA PO (13:57)
[2018-11-05] MEDS ORDERED: METOPROLOL TAR100 M1 PO (13:57)
[2018-11-05] MEDS ORDERED: DOXYCYCLINE100 M3 PO (13:58)
[2018-11-05] MEDS ORDERED: PREDNISONE10 MG PO (13:59)
[2019-01-05] MEDS ORDERED: LIPITOR40 MG PO (20:43)
[2019-01-05] MEDS ORDERED: AMLODIPINE BESYL5 MG PO (20:43)
[2019-01-09] MEDS ORDERED: DILTIAZEM 24HR120 MG PO (15:34)
[2019-01-09] MEDS ORDERED: METOPROLOL TAR100 M1 PO (15:34)
[2019-02-25] MEDS ORDERED: RESTORIL15 MG PO (19:43)
[2019-02-25] MEDS ORDERED: ALDACTONE25 M1 PO (20:55)
[2019-03-02] MEDS ORDERED: PREDNISONE10 MG PO (11:53)
[2019-03-02] MEDS ORDERED: DOXYCYCLINE100 M3 PO (11:53)
[2019-03-19] MEDS ORDERED: VITAMIN D400 UNI1 PO (09:51)
== END 2018-10-11 10:44 | disposition home health service (06) | DRG 291 ==
LOC: ED 17:04 → EDHOLD 18:31 → 4E 18:31
PROVIDERS: Emergency Medicine; Internal Medicine; Internal Medicine Cardiovascular Disease; ADMIT Internal Medicine
DX: I13.0 Hypertensive heart and chronic kidney disease with heart failure and stage 1 through stage 4 chronic kidney disease, or unspecified chronic kidney disease (principal); I50.33 Acute on chronic diastolic (congestive) heart failure; E87.2 Acidosis; E87.1 Hypo-osmolality and hyponatremia; D68.59 Other primary thrombophilia; R65.10 Systemic inflammatory response syndrome (SIRS) of non-infectious origin without acute organ dysfunction; I16.0 Hypertensive urgency; I48.0 Paroxysmal atrial fibrillation; N18.3 Chronic kidney disease, stage 3 (moderate); J44.9 Chronic obstructive pulmonary disease, unspecified; E03.9 Hypothyroidism, unspecified; G47.00 Insomnia, unspecified; I27.20 Pulmonary hypertension, unspecified; E66.3 Overweight; K44.9 Diaphragmatic hernia without obstruction or gangrene; R73.9 Hyperglycemia, unspecified; E87.6 Hypokalemia; E87.8 Other disorders of electrolyte and fluid balance, not elsewhere classified; D72.829 Elevated white blood cell count, unspecified; E55.9 Vitamin D deficiency, unspecified; Z88.6 Allergy status to analgesic agent; Z88.1 Allergy status to other antibiotic agents; Z98.42 Cataract extraction status, left eye; Z98.41 Cataract extraction status, right eye; Z90.710 Acquired absence of both cervix and uterus; Z87.891 Personal history of nicotine dependence; Z81.1 Family history of alcohol abuse and dependence; Z83.2 Family history of diseases of the blood and blood-forming organs and certain disorders involving the immune mechanism; Z68.25 Body mass index [BMI] 25.0-25.9, adult

== ENCOUNTER → 2018-10-28 | Outpatient (CLI) | payer MEDICARE, MEDICAID ==
[~2018-10-28] MED LIST changes: +ALDACTONE25 M1 PO; +DILTIAZEM 24HR120 MG PO; +DOXYCYCLINE MO100 M1 PO; +FUROSEMIDE40 MG PO; +LIPITOR40 MG PO; +METOPROLOL TAR100 M1 PO; +METOPROLOL TART50 M1 PO; +RESTORIL15 MG PO; +VITAMIN D400 UNI1 PO; +XARE15TA PO
--- NOTE | ~2018-10-28 | PR ---
[place], [place] PROGRESS NOTE NAME: ETHAN MARIN UNIT #: [id number] ROOM: DOCTOR: AYANA HOOPER MD,TED BIRTHDATE: [birth year] DOS: 11/05/2018 PULMONARY PROGRESS NOTE SUBJECTIVE: The patient was noted comfortable at this time, resting on the bed this morning of assessment. She has been noted without any symptoms of fever or chills, coughing or any sputum expectoration, complains of some dizziness last night, which got corrected with the patient; however, improved without any intervention per the patient. PHYSICAL EXAMINATION: VITAL SIGNS: Normal temperature, respiratory rate 20, heart rate 58, blood pressure 110/69. Pulse oxygen saturation of the patient was recorded as 97% saturation, resting room air. HEENT: Examination shows head was atraumatic. Eyes: No icterus. NECK: Supple. CARDIOVASCULAR: S1, S2 is audible. LUNGS: Moderate decreased breath sounds. There were no wheeze or crackles. ABDOMEN: Soft, nontender, bowel sounds present. EXTREMITIES: No acute change. IMPRESSION: Resolving acute exacerbation of chronic obstructive pulmonary disease, acute bronchitis gradually and progressively. PLAN OF MANAGEMENT: The patient could be considered for discharge from the pulmonary standpoint tapering prednisone and oral antibiotics. Other therapy, plan and management previously will be continued at this time until discharge. TED PIÑA MD CM:PNTRANS [id number] TED HOOPER MD 11/06/18 1253 [place] GUTIERREZ.R
--- NOTE | ~2018-10-28 | PR ---
[place], [place] PROGRESS NOTE NAME: ETHAN MARIN UNIT #: [id number] ROOM: DOCTOR: TED GORDON MD BIRTHDATE: [birth year] DOS: 11/04/2018 PULMONARY PROGRESS NOTE SUBJECTIVE: The patient was noted comfortable at this time without any acute distress, sitting on the chair this morning. Shortness of breath, cough and other symptoms have been gradually subsiding. There were no symptoms of fever, chills, or hemoptysis reported. There was no pain, no edema of the lower extremities. OBJECTIVE: VITAL SIGNS: Normal temperature, respiratory rate 18, heart rate 68, blood pressure 119/76. HEENT: Examination shows head was atraumatic. Eyes nonicterus. NECK: Supple. CARDIOVASCULAR: S1, S2 is audible. LUNGS: The patient was noted with moderate decreased breath sounds, scattered expiratory wheezing, no crackles. ABDOMEN: Soft, nontender. Bowel sounds present. EXTREMITIES: No acute edema. LABORATORY DATA: BMP this morning, BUN 22, creatinine 1.29, sodium 132. CBC, normal WBC count. IMPRESSION: 1. The patient has been noted with gradual reduction and improvement of the acute exacerbation of chronic obstructive pulmonary disease, acute tracheobronchitis. 2. Mild elevation of creatinine and hyponatremia. PLAN OF TREATMENT: Decrease Solu-Medrol dose to 40 mg b.i.d. Ambulation was encouraged. Continue oral doxycycline. Possible discharge to home in the morning, if the patient continued to do well with current treatment could be considered. [place], [place] PROGRESS NOTE NAME: ETHAN MARIN UNIT #: [id number] ROOM: DOCTOR: TED GORDON MD BIRTHDATE: [birth year] TED PIÑA MD CM:PNBING [id number] TED HOOPER MD 11/06/18 1253 [place] GUTIERREZ.LLR
[2018-10-28 08:32] LABS: ALBUMIN 3.4 gm/dl (3.1-4.5); CREATININE 1.37 mg/dL (0.55-1.02); POTASSIUM 3.6 mmol/L (3.5-5.1); TOTAL PROTEIN 7.2 gm/dL (6.4-8.2)
== END | disposition home or self-care (01) ==
LOC: LAB 07:43
PROVIDERS: Nurse Practitioner Family
DX: I13.0 Hypertensive heart and chronic kidney disease with heart failure and stage 1 through stage 4 chronic kidney disease, or unspecified chronic kidney disease (principal); I50.31 Acute diastolic (congestive) heart failure; N18.3 Chronic kidney disease, stage 3 (moderate); R79.82 Elevated C-reactive protein (CRP)

== ENCOUNTER 2019-05-15 10:21 | Inpatient (IN) | payer MEDICARE ==
[2019-05-15] VITALS (7 sets, daily range): BP systolic 121–148; BP diastolic 54–96
[~2019-05-15] VITALS: Ht 170.1 cm; Wt 77.8 kg
--- NOTE | ~2019-05-15 | EKG ---
[place], [place] ELECTROCARDIOGRAM REPORT NAME: ETHAN MARIN UNIT #: [id number] ROOM: 529 DOCTOR: JESSE DRAFT REPORT BIRTHDATE: [birth year] [facility] Test Date: 2019-05-15 Test Time: 13:34:35 Pat Name: ETHAN MARIN Department: Room: 529 Gender: F Yarn Sorter: Kimberlyn Grady : 1935 Requested By: JOSE JULIAN Order Number: [id number] Reading MD: Watson Flores Measurements Intervals [place] Rate: 59 P: 0 TX: 161 QRS: -26 QRSD: 93 T: 31 QT: 475 QTc: 471 Interpretive Statements Sinus rhythm Atrial premature complexes Borderline left axis deviation Low voltage, precordial leads Consider anterior infarct Baseline wander in lead(s) III Compared to ECG 03/18/2019 20:37:09 Atrial premature complex(es) now present Atrial fibrillation no longer present Myocardial infarct finding still present Electronically Signed On 05-17-2019 12:04:22 PDT by Watson Flores CM:EKGRPT:ELECTROCARDIOGRAM REPORT [id number] 1204 JOSE RODRIGUES DRAFT REPORT JOSE JULIAN DO
--- NOTE | ~2019-05-15 | EKG ---
[place], [place] ELECTROCARDIOGRAM REPORT NAME: ETHAN MARIN UNIT #: [id number] ROOM: 529 DOCTOR: JESSE DRAFT REPORT BIRTHDATE: [birth year] [facility] Test Date: 2019-05-15 Test Time: 16:41:10 Pat Name: ETHAN MARIN Department: Room: 529 Gender: F Hammerer Helper: CHRIS : 1935 Requested By: JOSE JULIAN Order Number: [id number] Reading MD: Watson Flores Measurements Intervals [place] Rate: 62 P: GA: QRS: -26 QRSD: 97 T: 38 QT: 451 QTc: 458 Interpretive Statements Atrial flutter Borderline left axis deviation Low voltage, precordial leads Consider anterior infarct Compared to ECG 03/18/2019 20:37:09 Atrial fibrillation no longer present Myocardial infarct finding still present Electronically Signed On 05-17-2019 12:04:32 PDT by Watson Flores CM:EKGRPT:ELECTROCARDIOGRAM REPORT 1641 1204 JOSE RODRIGUES DRAFT REPORT JOSE JULIAN DO
--- NOTE | ~2019-05-15 | ST ---
[place], [place] EXERCISE STRESS TEST [id number] UNIT #: [id number] ROOM: 529 DOCTOR: CLAYTON COBOS,MARIELY BIRTHDATE: [birth year] DOS: 05/16/2019 LEXISCAN STRESS TEST REASON FOR TEST: Chest pain. PHYSICAL EXAMINATION NECK: Supple. LUNGS: Clear anteriorly. HEART: Irregular. PROTOCOL: Lexiscan protocol. Maximum heart rate 138/78. SYMPTOMS: The patient is chest pain free. EKG: Resting EKG showed atrial fibrillation. Stress EKG showed atrial fibrillation. CONCLUSION: Clinically, the patient is chest pain free. EKG nonischemic. POST-STRESS COMPLICATIONS: None. The patient received total of 0.4 mg Lexiscan. MARIELY ARNOLD MD CM:STRESS:EXERCISE STRESS TEST REPORT [id number] 15 MARIELY ARNOLD MD
--- NOTE | ~2019-05-15 | CON ---
[place], [place] REPORT OF CONSULTATION [id number] UNIT #: [id number] ROOM: 529 DOCTOR: MARIELY ARNOLD MD BIRTHDATE: [birth year] DOS: 05/16/2019 CARDIAC CONSULT REASON FOR CONSULTATION: Chest pain. HISTORY OF PRESENT ILLNESS: The patient is an 84-year-old patient with history of coronary artery disease, paroxysmal atrial fibrillation, hypertension, was presented to Emergency Room for right-sided chest pain that started in the morning on the day of her ER visit. The pain actually started in her right shoulder and radiated towards her chest area. She did feel like a sharp pain and then this pain lasts for a few minutes and relieved on its own. No associated nausea, diaphoresis, or shortness of breath. Her last stress test was in 2016. Denies any exertional chest pains or palpitations. No PND, no orthopnea. No nausea, vomiting. No fever and chills. No musculoskeletal symptoms. No GI symptoms. No bladder or bowel symptoms. REVIEW OF SYSTEMS: Review of 10 systems negative except as mentioned above. PAST MEDICAL HISTORY: 1. Hypertension. 2. Chronic kidney disease. 3. Diastolic heart failure. 4. Chronic obstructive pulmonary disease, paroxysmal atrial fibrillation, hiatal hernia, hypothyroidism, type 2 diabetes. PAST SURGICAL HISTORY: History of hysterectomy, bladder surgery. SOCIAL HISTORY: The patient does not use illicit drugs. Former alcohol use, but quit drinking 30 years ago. Former smoker, quit smoking 20 years ago. FAMILY HISTORY: Nil contributory to her age. Mother from blood clot in the heart at age 57. Father at age 60. MEDICATIONS: Reviewed. ALLERGIES: Reviewed. PHYSICAL EXAMINATION: VITAL SIGNS: Blood pressure 129/72, pulse 60, respirations 16, weight 77.7 kilos, BMI 27. GENERAL: Alert, comfortable, in no acute distress. NECK: Supple, no distended. No carotid bruit. CHEST: Symmetrical, nontender. LUNGS: Clear to auscultation bilaterally. HEART: Irregularly irregular, grade 1/6 systolic murmur. ABDOMEN: Benign, nontender. Bowel sounds normal. EXTREMITIES: Showed no edema. Distal pulses palpable. SKIN: Warm and dry. No cyanosis, no clubbing. RECTAL: Deferred. [place], [place] REPORT OF CONSULTATION NAME: ETHAN MARIN UNIT #: [id number] ROOM: 529 DOCTOR: CLAYTON COBOS,MARIELY BIRTHDATE: [birth year] GENITOURINARY: Deferred. NEUROLOGIC: The patient is alert with no focal neurologic deficit. REVIEW OF THE DIAGNOSTIC TESTS: EKG showed atrial fibrillation with old anterior AK. CBC, chemistry reviewed. Creatinine 1.7. Cardiac troponins are negative. Echo from 10/2018 showed EF of 60% with 2+ aortic regurgitation. Stress test from 09/2016 reviewed. IMPRESSION: 1. Chest pain, atypical, myocardial infarction ruled out. 2. Persistent atrial fibrillation. 3. Hypertension. 4. Mild valvular heart disease with aortic regurgitation. 5. Chronic kidney disease. 6. Sinus bradycardia. RECOMMENDATIONS: 1. Continue current medications. 2. Lexiscan stress test today. If stress test is unremarkable, the patient can be discharged home. MARIELY ARNOLD MD CM:CONSTR:REPORT OF CONSULTATION 1659 05/17/19 0002 interface
--- NOTE | ~2019-05-15 | EKG ---
[place], [place] ELECTROCARDIOGRAM REPORT NAME: ETHAN MARIN UNIT #: [id number] ROOM: 529 DOCTOR: JESSE DRAFT REPORT BIRTHDATE: [birth year] [facility] Test Date: 2019-05-15 Test Time: 10:27:27 Pat Name: ETHAN MARIN Department: Room: 529 Gender: F Medical Secretary Receptionist: Kimberlyn Grady : 1935 Requested By: JOSE JULIAN Order Number: [id number] Reading MD: Watson Flores Measurements Intervals [place] Rate: 56 P: [place]: QRS: -18 QRSD: 96 T: 32 QT: 451 QTc: 436 Interpretive Statements Atrial fibrillation with SVR Borderline left axis deviation Low voltage, precordial leads RSR' in V1 or V2, probably normal variant Consider anterior infarct Compared to ECG 03/18/2019 20:37:09 No significant changes Electronically Signed On 05-17-2019 12:03:54 PDT by Watson Flores CM:EKGRPT:ELECTROCARDIOGRAM REPORT 1027 1203 JOSE RODRIGUES DRAFT REPORT JOSE JULIAN DO
[2019-05-15 10:58] LABS: BASO # 0.1 10*3/uL (0.0-0.1); BASO % 0.9 % (0.0-1.0); EOS # 0.1 10*3/uL (0.0-0.4); EOS % 1.1 % (1.0-4.0); HEMATOCRIT 36.5 % (37.0-47.0); HEMOGLOBIN 11.4 g/dl (12.0-16.0); LYMPH # 2.8 10*3/uL (1.3-4.4); LYMPH % 34.3 % (27.0-41.0); MEAN CELL VOLUME 78.2 fl (81.0-99.0); MEAN CORPUSCULAR HGB 24.4 pg (27.0-31.0); MEAN CORPUSCULAR HGB CONC 31.2 g/dl (33.0-37.0); MEAN PLATELET VOLUME 9.6 fl (9.6-12.3); MONO # 1.1 10*3/uL (0.1-1.0); MONO % 13.9 % (3.0-9.0); NEUT % 49.4 % (47.0-73.0); PLATELET COUNT AUTOMATED 336 10*3/uL (130-400); RED BLOOD COUNT 4.67 10*6/uL (4.10-5.10); RED CELL DISTRI WIDTH 17.5 % (0-14.5)
[2019-05-15 11:09] LABS: ACT PARTIAL THROMBO TIME 42.1 SECONDS (20.0-32.1); INTERNATIONAL NORM RATIO 1.3 (2.0-3.5)
[2019-05-15 11:15] LABS: LIPASE 488 U/L (73-393)
[2019-05-15 11:16] LABS: ALBUMIN 3.6 gm/dl (3.1-4.5); ALKALINE PHOSPHATASE 116 U/L (45-117); BUN 31 mg/dl (7-24); CHLORIDE 94 mmol/L (98-107); CREATININE 1.49 mg/dL (0.55-1.02); POTASSIUM 4.3 mmol/L (3.5-5.1); SGOT/AST 19 IU/L (3-35); SGPT/ALT 18 U/L (12-78); SODIUM 129 mmol/L (136-145); TOTAL PROTEIN 7.9 gm/dL (6.4-8.2)
[2019-05-15 11:18] LABS: TROPONIN I < 0.015 ng/ml (<0.045)
--- NOTE | 2019-05-15 13:15 | NUR ---
A 84, admitted to 5E, under the services of JOVAN Paris DO with a diagnosis of CP R/O NM. Chief complaint is CHEST PAIN. Patient arrived via bed from ER. Monitor applied. Initial assessment completed. Vital signs taken and recorded. JOVAN PARIS DO notified of admission to the unit. Orders received. See assessment for past medical history, medications and allergies. Patient and/or family oriented to unit. Clothing/patient valuable form completed. DEJUAN ASHLEY
--- NOTE | 2019-05-15 13:32 | NUR ---
INFORMED THAT PATIENT CAME UP FROM ED WITH CYANOTIC NAIL BEDS U/L. INFORMED THAT PATIENT STATED SOB BUT NOTHING ABNORMAL FOR HER SPO2 92-95% ROOM AIR. CAPILLARY <3 SECONDS. PATIENT STATES SHES COLD, HEAT TURN UP AND WARM BLANKETS APPLIED, TYMPANIC TEMP 95.9F, DR. AGARWAL INFORMED. HR 105 AND BP 144/67. STATED HE WILL TALK TO DR. LAYNE.
--- NOTE | 2019-05-15 13:32 | NUR ---
INFORMED THAT HOME MEDS ARE VERIFIED BY DAUGHTER
--- NOTE | 2019-05-15 14:00 | NUR ---
CALL PLACED TO DR. MAGAÑA SPOKE TO LUCAS MORALES OF [facility].
--- NOTE | 2019-05-15 20:37 | NUR ---
CALL PLACED TO HOSPITALIST LINE, SPOKE WITH DR. BERNABE, ADVISED PATIENT C/O NEW ONSET RIGHT ANKLE PAIN, WITH RIGHT ANKLE WARMER TO TOUCH THAN LEFT, ADVISED TO MONITOR PATIENT, IF NOT IMPROVED X 1 HOUR, CALL BACK. ALSO ADVISED THAT PATIENTS HOME MEDICATIONS HAD NOT BEEN ADDRESSED.
--- NOTE | 2019-05-15 21:54 | NUR ---
PATIENT CONTINUES TO C/O OF R ANKLE PAIN MEDICATED WITH HYDROCODONE/APAP ORDERED ALSO REQUESTED HER RESTORIL FOR SLEEP. SHE REQUESTED NOT TO AWOKEN FOR BEDSIDE SHIFT REPORT.
[2019-05-16 07:15] LABS: BASO # 0.1 10*3/uL (0.0-0.1); EOS # 0.1 10*3/uL (0.0-0.4); EOS % 0.9 % (1.0-4.0); HEMATOCRIT 39.4 % (37.0-47.0); HEMOGLOBIN 12.4 g/dl (12.0-16.0); LYMPH # 3.4 10*3/uL (1.3-4.4); LYMPH % 42.1 % (27.0-41.0); MEAN CORPUSCULAR HGB 24.2 pg (27.0-31.0); MEAN CORPUSCULAR HGB CONC 31.5 g/dl (33.0-37.0); MEAN PLATELET VOLUME 9.9 fl (9.6-12.3); MONO % 12.2 % (3.0-9.0); NEUT # 3.6 10*3/uL (2.3-7.9); NEUT % 43.6 % (47.0-73.0); PLATELET COUNT AUTOMATED 353 10*3/uL (130-400); RED BLOOD COUNT 5.12 10*6/uL (4.10-5.10); RED CELL DISTRI WIDTH 17.5 % (0-14.5); WHITE BLOOD COUNT 8.1 10*3/uL (4.8-10.8)
[2019-05-16 07:30] LABS: CREATININE 1.7 mg/dL (0.55-1.02); PHOSPHOROUS 3.8 mg/dL (2.5-4.9); POTASSIUM 4.5 mmol/L (3.5-5.1); TOTAL PROTEIN 8.4 gm/dL (6.4-8.2)
[2019-05-16 07:49] LABS: ACT PARTIAL THROMBO TIME 36.5 SECONDS (20.0-32.1); INTERNATIONAL NORM RATIO 1.1 (2.0-3.5)
--- NOTE | 2019-05-16 09:00 | NUR ---
PT TAKEN TO CARDIAC REHAB AT THIS TIME FOR STRESS TEST.
--- NOTE | 2019-05-16 09:20 | NUR ---
INFORMED CONSENT SIGNED FOR A LEXISCAN STRESS TEST WITH DR. ARNOLD. RESTING EKG NSR WITH A HT RT OF 71, AND A BP OF 120/70. POX 100% VIA RA WITH CLEAR BREATH SOUNDS, DIMINISHED IN THE BASES. COMPLETED ONE MINUTE OF A LEXISCAN PROTOCOL RECEIVING LEXISCAN 0.4 MG OVER 10 SECONDS. NO SYMPTOMS EXPRESSED. TOLERATED WELL. HAD A PEAK HT RT OF 74, WITH BP OF 138/78. LAST RECOVERY HT RT OF 75, WITH A BP OF 122/80. AWAITING NUCLEAR IMAGING IN STABLE CONDITION.
--- NOTE | 2019-05-16 10:30 | NUR ---
Vacuum Metalizer Operator in to talk to patient. Patient states lives at home with daughter. There are few steps in the home. Physician: vinayak cisneros Pharmacy: [facility] [place] [facility]: none Patient's level of ADLs: INDEPENDENT Patient has working utilities: all working DME: none Follow-up physician's appointment after d/c: will be made by hospitalist nurse director upon discharge Does patient want to access PORTAL?: no Discharge plan discussed with patient and daughter, she lives at home with daughter, daughter present. patient states she lives at home with daughter she states she is independent in adls and ambulation discussed with them any needs at home including VNA and both declined any servicies, case management will follow for any home needs. LENNY ABRAHAM
--- NOTE | 2019-05-16 11:50 | NUR ---
Another Multi-Disciplinary Team meeting was held on 05/16/19, for the purpose of discharge planning. The patient was referred to the following services for follow-up: patient will return home with daughter with no home needs, patient is having a stress test and depending on results, may be discharged to home today LENNY ABRAHAM
[2019-05-16 12:00] VITALS: BP 149/68
--- NOTE | 2019-05-16 12:48 | NUR ---
WALKING HALLS FOR HOME 02 ASSESSMENT.
--- NOTE | 2019-05-16 12:50 | NUR ---
HOME O2 ASSESSMENT: PRE BP: 149/68, HR 72, RR 18, PULSE OX 99% ON ROOM AIR AT REST. AMBULATED PATIENT IN HALLWAY, PULSE OX 94%-95% ON ROOM AIR THROUGHOUT AMBULATION. POST BP: 135/75, HR 82, RR 18, PULSE OX 96% ON ROOM AIR AT REST. PATIENT APPEARED TO TOLERATE WELL. RN NOTIFIED.
--- NOTE | 2019-05-16 13:02 | NUR ---
Faxed Palliative order to [facility]. -NEVA Fonseca
--- NOTE | 2019-05-16 13:02 | NUR ---
PER RT DA SILVA, PT DID NOT QUALIFY FOR HOME 02.
--- NOTE | 2019-05-16 15:23 | NUR ---
PHYSICAL THERAPY Physical therapy evaluation attempted. Patient refusing PT evaluation. Discharge PT orders at this time. Thank you. Maria Malloy,PT,DPT
--- NOTE | 2019-05-16 15:39 | NUR ---
Occupational THerapy offered and patient declined the evaluation stating that she was going home today. Taisha Haywood OTR/l
[2019-05-16 16:00] VITALS: BP 149/63
--- NOTE | 2019-05-16 16:10 | NUR ---
PER , STRESS TEST WAS NORMAL AND CAN BE DISCHARGED FROM CARDIAC STANDPOINT. INFORMED. SAID OK.
--- NOTE | 2019-05-16 17:53 | NUR ---
Discharge instructions reviewed with patient/family. Patient receptive and verbalizes understanding. Follow-up care arranged. Written instructions given to patient/family. SKYLER CONCEPCION
== END 2019-05-16 17:53 | disposition home or self-care (01) | DRG 313 ==
LOC: ED 10:21 → 5E 12:42 → EDHOLD 12:42 → 5E 12:49
PROVIDERS: Emergency Medicine; Family Medicine; ADMIT Internal Medicine
PROC: 4A02XM4 Measurement of Cardiac Total Activity, External Approach (ICD-10-PCS; principal; 2019-05-16)
PROC: 3E073KZ Introduction of Other Diagnostic Substance into Coronary Artery, Percutaneous Approach (ICD-10-PCS; principal; 2019-05-16)
DX: R07.89 Other chest pain (principal); E87.1 Hypo-osmolality and hyponatremia; I50.32 Chronic diastolic (congestive) heart failure; I13.0 Hypertensive heart and chronic kidney disease with heart failure and stage 1 through stage 4 chronic kidney disease, or unspecified chronic kidney disease; D68.59 Other primary thrombophilia; I48.1 Persistent atrial fibrillation; R00.1 Bradycardia, unspecified; D50.9 Iron deficiency anemia, unspecified; I48.0 Paroxysmal atrial fibrillation; I27.20 Pulmonary hypertension, unspecified; N18.3 Chronic kidney disease, stage 3 (moderate); J44.9 Chronic obstructive pulmonary disease, unspecified; K57.90 Diverticulosis of intestine, part unspecified, without perforation or abscess without bleeding; E55.9 Vitamin D deficiency, unspecified; I35.1 Nonrheumatic aortic (valve) insufficiency; G47.00 Insomnia, unspecified; K44.9 Diaphragmatic hernia without obstruction or gangrene; E11.65 Type 2 diabetes mellitus with hyperglycemia; E03.9 Hypothyroidism, unspecified; E11.22 Type 2 diabetes mellitus with diabetic chronic kidney disease; Z86.010 Personal history of colon polyps; Z98.42 Cataract extraction status, left eye; Z98.41 Cataract extraction status, right eye; Z90.49 Acquired absence of other specified parts of digestive tract; Z87.891 Personal history of nicotine dependence; Z79.51 Long term (current) use of inhaled steroids; Z79.01 Long term (current) use of anticoagulants; Z79.899 Other long term (current) drug therapy; Z88.1 Allergy status to other antibiotic agents; Z88.6 Allergy status to analgesic agent; Z82.49 Family history of ischemic heart disease and other diseases of the circulatory system; Z81.1 Family history of alcohol abuse and dependence